=== PATIENT | female | born 1940 | race Caucasian/White ===

== ENCOUNTER → 2017-07-19 10:07 | Outpatient (CLI) | payer MEDICARE, OTHER, SELFPAY ==
[2017-07-19 11:25] LABS: Basophils # 0.1 K/mm3 (0-0.2); Basophils % 0.6 % (0.1-2.0); Eosinophils # 0.2 K/mm3 (0.0-0.4); Eosinophils % 2.2 % (0.1-12.0); Hematocrit 37.8 % (37.0-47.0); Hemoglobin 12.2 g/dL (12.2-16.2); Lymphocytes # 1.4 K/mm3 (0.7-4.5); Lymphocytes % 15.9 K/mm3 (10-50); Mean Corpuscular HGB Conc 32.3 g/dL (31.8-35.4); Mean Corpuscular Volume 95.9 fl (81-99); Mean Platelet Volume 9.5 fl (7.4-10.4); Monocytes # 0.6 K/mm3 (0.1-1.0); Neutrophils # 6.4 K/mm3 (1.8-7.8); Neutrophils % 74.4 % (37.0-80.0); Platelet Count 293 K/mm3 (142-424); Red Blood Count 3.94 M/mm3 (4.20-5.40); Red Cell Distribution Width 13.7 % (11.5-17.5); White Blood Count 8.6 K/mm3 (4.8-10.8)
[2017-07-19 15:23] LABS: Appearance,Urine SL CLOUDY (Clear); Bilirubin,Urine Negative (Negative); Blood, Urine Negative (Negative); Color,Urine YELLOW (Yellow); Glucose,Urine (UA) Negative (Negative); Ketones,Urine TRACE (Negative); Leukocyte Esterase,Urine TRACE (Negative); Nitrate,Urine Negative (Negative); Protein,Urine 1+ (Negative); Specific Gravity, Urine >= 1.030 (1.005-1.030); Urobilinogen,Urine 0.2 EU/dl (0.2)
[2017-07-19 15:57] LABS: Total Protein,Urine Random 55.6 mg/dL (0.0-11.9)
[2017-07-19 16:20] LABS: Bacteria,Urine 4+ /lpf; Squamous Epithelial Cell,Urine 20-50 #/hpf (0-5); Transitional Epi Cells,Urine OCC #/lpf (0-3); WBC,Urine 20-50 #/hpf (0-3)
[2017-07-19 16:55] LABS: Creatinine,Urine Random 508 mg/dL (20-320)
[2017-07-19 22:34] LABS: Albumin Level 3.6 gm/dL (3.4-5.0); Anion Gap 15.6 mEq/L (5-15); Blood Urea Nitrogen 32 mg/dL (7-18); Calcium 9.1 mg/dL (8.5-10.1); Carbon Dioxide 26 mmol/L (21.0-32.0); Chloride 104 mmol/L (98-107); Creatinine,Serum 2.04 mg/dL (0.55-1.02); Estimated Glomerular Filt Rate 24 ml/min (>60); GFR (African American) 29 ML/MIN (>60); Glucose 122 mg/dL (74-106); Phosphorous 3.2 mg/dL (2.4-4.9); Potassium 4.6 mmoL/L (3.5-5.1); Sodium 141 mmol/L (136-145)
[2017-07-20 18:29] LABS: Parathyroid Hormone Intact 48 pg/mL (15-65); Vitamin D 25 Hydroxy 20.7 ng/mL (30.0-100.0)
== END ==
PROVIDERS: PCP Family Medicine; Visit Provider Internal Medicine Nephrology
DX: N18.4 Chronic kidney disease, stage 4 (severe) (principal); R82.90 Unspecified abnormal findings in urine
CPT/HCPCS: 36415; 80069; 81001; 82330; 82570; 82652; 83970; 84155; 85025; 87086

== ENCOUNTER → 2017-07-26 14:08 | Outpatient (POV) | payer MEDICARE, OTHER, SELFPAY | PROVIDERS: PCP Family Medicine; Visit Provider Internal Medicine Nephrology | DX: Z00.00 Encounter for general adult medical examination without abnormal findings (principal) ==

== ENCOUNTER → 2017-11-14 12:36 | Outpatient (CLI) | payer MEDICARE, OTHER, SELFPAY ==
--- NOTE | 2017-11-14 12:45 | XR_ITS ---
XR chest 2V HISTORY: ITS.REASON: WGT LOSS ORDERING PHYSICIAN: Carolyn Michel MD PATIENT AGE: 77 years COMPARISON: 01/04/2015 FINDINGS: There is cardiomegaly without failure. Calcified granulomas are present bilaterally. No lobar consolidation or collapse. There is a small left pleural effusion. There is mild kyphosis of the thoracic spine IMPRESSION: Cardiomegaly with small left effusion
== END ==
PROVIDERS: PCP Family Medicine; Visit Provider Family Medicine
DX: R63.4 Abnormal weight loss (principal)
CPT/HCPCS: 71046

== ENCOUNTER → 2017-11-23 09:05 | Outpatient (CLI) | payer MEDICARE, OTHER, SELFPAY ==
--- NOTE | 2017-11-23 09:08 | US_ITS ---
US kidney retroperitoneal comp HISTORY: ITS.REASON: RENAL INSUFFICIENCY ORDERING PHYSICIAN: Carolyn Michel MD PATIENT AGE: 77 years Comparison: None FINDINGS: The right kidney measures 9.5 x 3.3 x 5.2 cm. There is cortical thinning. A 2.9 cm cyst is present in the mid polar region. No hydronephrosis. The left kidney is 8.9 x 4 x 5.5 cm also showing cortical thinning. No mass evident. No hydronephrosis IMPRESSION: Bilateral renal cortical thinning small right renal cyst. No hydronephrosis
== END ==
PROVIDERS: PCP Family Medicine; Visit Provider Family Medicine
DX: N28.9 Disorder of kidney and ureter, unspecified (principal)
CPT/HCPCS: 76770

== ENCOUNTER → 2017-12-24 08:46 | Outpatient (CLI) | payer MEDICARE, OTHER, SELFPAY ==
[2017-12-24 08:50] LABS: Microscopic, Urine URINE MICROSCOPIC (MICROSCOPIC)
[2017-12-24 09:40] LABS: Basophils % 0.5 % (0.1-2.0); Eosinophils # 0.2 K/mm3 (0.0-0.4); Eosinophils % 2.4 % (0.1-12.0); Hematocrit 39.9 % (37.0-47.0); Hemoglobin 12.3 g/dL (12.2-16.2); Lymphocytes # 1.6 K/mm3 (0.7-4.5); Lymphocytes % 16.9 K/mm3 (10-50); Mean Corpuscular HGB Conc 30.9 g/dL (31.8-35.4); Mean Corpuscular Hemoglobin 29.8 pg (27.0-31.2); Mean Corpuscular Volume 96.3 fl (81-99); Monocytes # 0.5 K/mm3 (0.1-1.0); Monocytes % 5.4 % (1.7-9.3); Neutrophils # 7.1 K/mm3 (1.8-7.8); Neutrophils % 74.8 % (37.0-80.0); Platelet Count 351 K/mm3 (142-424); Red Blood Count 4.14 M/mm3 (4.20-5.40); Red Cell Distribution Width 13.6 % (11.5-17.5); White Blood Count 9.5 K/mm3 (4.8-10.8)
[2017-12-24 09:46] LABS: Appearance,Urine SL CLOUDY (Clear); Blood, Urine Negative (Negative); Color,Urine YELLOW (Yellow); Glucose,Urine (UA) Negative (Negative); Ketones,Urine TRACE (Negative); Leukocyte Esterase,Urine 1+ (Negative); Nitrate,Urine POSITIVE (Negative); Protein,Urine 1+ (Negative); Specific Gravity, Urine >= 1.030 (1.005-1.030)
[2017-12-24 09:48] LABS: Total Protein,Urine Random 58.5 mg/dL (0.0-11.9)
[2017-12-24 09:54] LABS: Bilirubin,Urine Negative (Negative)
[2017-12-24 09:55] LABS: Creatinine,Urine Random 509 mg/dL (20-320)
[2017-12-24 09:58] LABS: Bacteria,Urine 2+ /lpf
[2017-12-24 10:24] LABS: Albumin Level 3.6 gm/dL (3.4-5.0); Anion Gap 14.9 mEq/L (5-15); Blood Urea Nitrogen 30 mg/dL (7-18); Calcium 9.4 mg/dL (8.5-10.1); Carbon Dioxide 25 mmol/L (21.0-32.0); Chloride 105 mmol/L (98-107); Creatinine,Serum 1.92 mg/dL (0.55-1.02); Estimated Glomerular Filt Rate 25 ml/min (>60); GFR (African American) 31 ML/MIN (>60); Glucose 111 mg/dL (74-106); Phosphorous 3.7 mg/dL (2.4-4.9); Potassium 4.9 mmoL/L (3.5-5.1); Sodium 140 mmol/L (136-145); Uric Acid 7.6 mg/dL (2.6-7.2)
== END ==
PROVIDERS: Visit Provider Internal Medicine Nephrology
DX: N18.4 Chronic kidney disease, stage 4 (severe) (principal); R82.90 Unspecified abnormal findings in urine
CPT/HCPCS: 36415; 80069; 81001; 82043; 82570; 82652; 84155; 84550; 85025; 87086

== ENCOUNTER → 2017-12-27 14:22 | Outpatient (POV) | payer MEDICARE, OTHER, SELFPAY | PROVIDERS: PCP Family Medicine; Visit Provider Internal Medicine Nephrology | DX: Z00.00 Encounter for general adult medical examination without abnormal findings (principal) ==

== ENCOUNTER → 2018-06-20 09:58 | Outpatient (CLI) | payer MEDICARE, OTHER, SELFPAY ==
[2018-06-20 10:22] LABS: Basophils # 0.1 K/mm3 (0-0.2); Basophils % 0.6 % (0.1-2.0); Eosinophils # 0.2 K/mm3 (0.0-0.4); Hematocrit 34.1 % (37.0-47.0); Hemoglobin 10.9 g/dL (12.2-16.2); Lymphocytes # 1.3 K/mm3 (0.7-4.5); Lymphocytes % 15.8 % (10-50); Mean Corpuscular HGB Conc 32.1 g/dL (31.8-35.4); Mean Corpuscular Hemoglobin 31.9 pg (27.0-31.2); Mean Corpuscular Volume 99.6 fl (81-99); Mean Platelet Volume 7.8 fl (7.4-10.4); Monocytes # 0.5 K/mm3 (0.1-1.0); Neutrophils # 6.3 K/mm3 (1.8-7.8); Neutrophils % 75.6 % (37.0-80.0); Platelet Count 317 K/mm3 (142-424); Red Blood Count 3.43 M/mm3 (4.20-5.40); White Blood Count 8.4 K/mm3 (4.8-10.8)
[2018-06-20 11:41] LABS: Albumin Level 3.2 gm/dL (3.4-5.0); Anion Gap 14.4 mEq/L (5-15); Blood Urea Nitrogen 30 mg/dL (7-18); Calcium 8.8 mg/dL (8.5-10.1); Carbon Dioxide 27 mmol/L (21.0-32.0); Chloride 107 mmol/L (98-107); Creatinine,Serum 2.05 mg/dL (0.55-1.02); Estimated Glomerular Filt Rate 23 ml/min (>60); GFR (African American) 28 ML/MIN (>60); Glucose 94 mg/dL (74-106); Phosphorous 3.6 mg/dL (2.4-4.9); Potassium 4.4 mmoL/L (3.5-5.1); Sodium 144 mmol/L (136-145); Uric Acid 5.9 mg/dL (2.6-7.2)
[2018-06-20 12:42] LABS: Microscopic, Urine URINE MICROSCOPIC (MICROSCOPIC)
[2018-06-20 13:00] LABS: Appearance,Urine SL CLOUDY (Clear); Bilirubin,Urine Negative (Negative); Blood, Urine Negative (Negative); Color,Urine DK YELLOW (Yellow); Glucose,Urine (UA) Negative (Negative); Ketones,Urine TRACE (Negative); Leukocyte Esterase,Urine TRACE (Negative); Nitrate,Urine Negative (Negative); Protein,Urine TRACE (Negative); Specific Gravity, Urine >= 1.030 (1.005-1.030); Urobilinogen,Urine 0.2 EU/dl (0.2)
[2018-06-20 13:08] LABS: Bacteria,Urine 2+ /lpf; Mucus,Urine 1+ /lpf
[2018-06-20 13:51] LABS: Creatinine,Urine Random 262 mg/dL (20-320); Total Protein,Urine Random 40.6 mg/dL (0.0-11.9)
[2018-06-22 10:56] LABS: Calcium, Ionized 5.3 mg/dL (4.5-5.6); Parathyroid Hormone Intact 53 pg/mL (15-65); Vitamin D 25 Hydroxy 21.7 ng/mL (30.0-100.0)
== END ==
PROVIDERS: Visit Provider Internal Medicine Nephrology
DX: N18.4 Chronic kidney disease, stage 4 (severe) (principal); R82.90 Unspecified abnormal findings in urine
CPT/HCPCS: 36415; 80069; 81001; 82330; 82570; 82652; 83970; 84155; 84550; 85025; 87086

== ENCOUNTER → 2018-06-27 12:43 | Outpatient (POV) | payer MEDICARE, OTHER, SELFPAY | PROVIDERS: Visit Provider Internal Medicine Nephrology | DX: Z00.00 Encounter for general adult medical examination without abnormal findings (principal) ==

== ENCOUNTER → 2019-01-15 09:31 | Outpatient (CLI) | payer MEDICARE, OTHER, SELFPAY ==
[2019-01-15 10:35] LABS: Basophils # 0.1 K/mm3 (0-0.2); Basophils % 0.6 % (0.1-2.0); Eosinophils # 0.2 K/mm3 (0.0-0.4); Eosinophils % 2.3 % (0.1-12.0); Hemoglobin 9.2 g/dL (12.2-16.2); Lymphocytes # 1.7 K/mm3 (0.7-4.5); Lymphocytes % 19.8 % (10-50); Mean Corpuscular HGB Conc 29.7 g/dL (31.8-35.4); Mean Corpuscular Hemoglobin 28.6 pg (27.0-31.2); Mean Corpuscular Volume 96.2 fl (81-99); Mean Platelet Volume 7.7 fl (7.4-10.4); Monocytes # 0.6 K/mm3 (0.1-1.0); Monocytes % 6.5 % (1.7-9.3); Neutrophils # 6.2 K/mm3 (1.8-7.8); Neutrophils % 70.8 % (37.0-80.0); Platelet Count 345 K/mm3 (142-424); Red Blood Count 3.22 M/mm3 (4.20-5.40); Red Cell Distribution Width 14.6 % (11.5-17.5); White Blood Count 8.8 K/mm3 (4.8-10.8)
[2019-01-15 11:53] LABS: Albumin Level 3.3 gm/dL (3.4-5.0); Anion Gap 12.7 mEq/L (5-15); Blood Urea Nitrogen 31 mg/dL (7-18); Calcium 9.3 mg/dL (8.5-10.1); Carbon Dioxide 28 mmol/L (21.0-32.0); Chloride 103 mmol/L (98-107); Creatinine,Serum 1.98 mg/dL (0.55-1.02); Estimated Glomerular Filt Rate 24 ml/min (>60); GFR (African American) 30 ML/MIN (>60); Glucose 87 mg/dL (74-106); Phosphorous 3.7 mg/dL (2.4-4.9); Potassium 4.7 mmoL/L (3.5-5.1); Sodium 139 mmol/L (136-145)
[2019-01-15 13:07] LABS: Microscopic, Urine URINE MICROSCOPIC (MICROSCOPIC)
[2019-01-15 13:13] LABS: Appearance,Urine SL CLOUDY (Clear); Bilirubin,Urine Negative (Negative); Blood, Urine Negative (Negative); Color,Urine YELLOW (Yellow); Glucose,Urine (UA) Negative (Negative); Ketones,Urine Negative (Negative); Leukocyte Esterase,Urine 1+ (Negative); Nitrate,Urine Negative (Negative); Protein,Urine 1+ (Negative); Specific Gravity, Urine 1.025 (1.005-1.030); Urobilinogen,Urine 0.2 EU/dl (0.2)
[2019-01-15 14:26] LABS: Bacteria,Urine Trace /lpf
[2019-01-15 15:15] LABS: Creatinine,Urine Random 213 mg/dL (20-320); Total Protein,Urine Random 65.8 mg/dL (0.0-11.9)
== END ==
PROVIDERS: Visit Provider Internal Medicine Nephrology
DX: N18.4 Chronic kidney disease, stage 4 (severe) (principal); R82.90 Unspecified abnormal findings in urine
CPT/HCPCS: 36415; 80069; 81001; 82570; 84155; 85025; 87086

== ENCOUNTER → 2019-01-23 12:18 | Outpatient (POV) | payer MEDICARE, OTHER, SELFPAY | PROVIDERS: Visit Provider Internal Medicine Nephrology | DX: Z00.00 Encounter for general adult medical examination without abnormal findings (principal) ==

== ENCOUNTER → 2019-03-03 13:05 | Outpatient (CLI) | payer MEDICARE, OTHER, SELFPAY ==
--- NOTE | 2019-03-03 13:10 | XR_ITS ---
PROCEDURE: XR SHOULDER RT MIN 2V CLINICAL INDICATION: RT SHOULDER ARTHROPATHY Pain COMPARISON: CXR1 CHEST-PORTABLE from 05/13/2014 CXR1 CHEST-PORTABLE from 01/04/2015 CXR2V XR chest 2V from 11/14/2017 FINDINGS: There are moderate osteoarthritic changes of the right shoulder joint with bony hypertrophic change at the humeral neck. No fracture or dislocation IMPRESSION: Osteoarthritis of the glenohumeral joint. Prominent bony hypertrophic changes are present at the humeral neck. This could be related to an old fracture with bony hypertrophy. Would recommend a follow-up to confirm stability as an exophytic bone lesion/neoplastic process is considered in the differential diagnosis Dictated by: Sukhwinder Martinez MD 03/03/2019 14:24 Electronically signed by Sukhwinder Martinez MD in [place] 03/03/2019 14:24
== END ==
PROVIDERS: PCP Family Medicine; Visit Provider Family Medicine
DX: M19.011 Primary osteoarthritis, right shoulder (principal)
CPT/HCPCS: 73030

== ENCOUNTER → 2019-06-16 08:53 | Outpatient (CLI) | payer MEDICARE, OTHER, SELFPAY ==
--- NOTE | 2019-06-16 09:06 | XR_ITS ---
PROCEDURE: XR SHOULDER RT MIN 2V CLINICAL INDICATION: shoulder pain COMPARISON: XR SHOULDER RT MIN 2V from 03/03/2019 FINDINGS: There is stable severe loss of joint space at the right glenohumeral joint with subchondral cyst formation and sclerosis and a large subcapital spur. Bone density is normal. There is no acute fracture. Soft tissues are unremarkable. The AC joint IMPRESSION: Severe glenohumeral joint osteoarthritis. No other change. Dictated by: Moris Shaikh 06/16/2019 18:10 Electronically signed by Moris Shaikh in [place] 06/16/2019 18:10
== END ==
PROVIDERS: PCP Family Medicine; Visit Provider Orthopaedic Surgery
DX: M25.511 Pain in right shoulder (principal)
CPT/HCPCS: 73030

== ENCOUNTER 2019-06-26 01:42 | Inpatient (IN) | payer MEDICARE, OTHER, SELFPAY ==
[2019-06-26] VITALS (18 sets, daily range): BP systolic 155–197; BP diastolic 74–115; PULSE 78–122; RESP 17–22; TEMP 36.4–37.4; O2SAT 24–99; BMI 36.1; BMI 34.0
--- NOTE | 2019-06-26 01:41 | ECG_ITS ---
APPROVED REPORT Exam: Resting ECG HR:60 bpm ECG Measurements Heart Rate 60 AXES OK P 39 QRSd 86 QRS 11 QT 410 T 124 QTc 410 <Conclusion> Atrial flutter with 4:[address] & T wave abnormality, consider lateral ischemia Abnormal ECG Electronically signed by : Oj Mccarthy, 06/27/2019 08:09:10
--- NOTE | 2019-06-26 01:47 | HMH.EDGENADL ---
ED Disposition Clinical Impression: Atrial flutter Community acquired pneumonia Qualifiers: Laterality: right Lung location: upper lobe of lung Qualified Code(s): J18.9 - Pneumonia, unspecified organism Disposition: Admitted as Observation Condition on Discharge: Fair Referrals: Provider,Referral, [Primary Care Provider] - - Critical Care Critical Care Time: No Attestation: On 06/26/19, the high probability of a clinically significant, sudden or life threatening deterioration of the following system(s) required my full and direct attention, intervention and personal management. The time I documented below is in addition to time spent performing reported procedures but includes the following listed in this critical care notation. Medical Decision Making - Akash Inquiry Pt receiving controlled substance: No Vital Signs: 06/26/19 01:44 Temperature 99.2 F Temperature Source Oral Pulse Rate [Right Brachial] 78 Respiratory Rate 22 Blood Pressure [Right Arm] 197/101 H Blood Pressure Mean [Right Arm] 133 Blood Pressure Source [Right Arm] Automatic Cuff Blood Pressure Position [Right Arm] Supine 02 Sat by Pulse Oximetry 93 L Oxygen Delivery Method Room Air - Lab Data Lab Results 06/26/19 01:58: WBC 10.4, RBC 3.82 L, Hgb 11.2 L, Hct 35.1 L, MCV 91.9, MCH 29.4, MCHC 32.0, RDW 16.3, Plt Count 306, MPV 7.9, Neut % (Auto) 78.6, Lymph % (Auto) 14.5, [place] % (Auto) 5.2, Eos % (Auto) 1.6, Baso % (Auto) 0.2, Neut # (Auto) 8.1 H, Lymph # (Auto) 1.5, [place] # (Auto) 0.5, Eos # (Auto) 0.2, Baso # (Auto) 0.0 06/26/19 01:58: Sodium 138, Potassium 4.7, Chloride 102, Carbon Dioxide 25, Anion Gap 15.7 H, BUN 36 H, Creatinine 1.90 H, Estimated Creat Clear 43, Estimated GFR 26 L, Est GFR ( Amer) 31 L, Glucose 112 H, Calcium 8.7, Troponin I 0.04, Digoxin 1.67 06/26/19 01:58: Lactate 0.8 06/26/19 02:05: Urine Color Yellow, Urine Appearance Clear, Urine pH 6.0, Ur Specific [place] >= 1.030, Urine Protein 2+, Urine Glucose (UA) Negative, Urine Ketones Negative, Urine Blood Negative, Urine Nitrate Negative, Urine Bilirubin Negative, Urine Urobilinogen 0.2, Ur Leukocyte Esterase Trace, Urine RBC 3-5, Urine WBC 3-5, Ur Squamous Epith Cells Occasional, Urine Bacteria 1+ 06/26/19 02:09: POC Glucose 110 06/26/19 02:40: Influenza Type A Ag Negative, Influenza Type B Ag Negative Result diagrams: 06/26/19 01:58 06/26/19 01:58 Orders (Tests/Meds): ED MEDICATIONS Generic Name Dose Route Start Last Admin Trade Name Freq PRN Reason Stop Dose Admin Ceftriaxone Sodium 1 gm/ 50 mls @ 100 mls/hr 06/26/19 02:45 06/26/19 03:03 Sodium Chloride IV 07/10/19 02:44 100 mls/hr Q24H DANIEL Administration Protocol Azithromycin 500 mg/ Sodium 250 mls @ 250 mls/hr 06/26/19 02:45 06/26/19 03:09 Chloride IV 07/10/19 02:44 250 mls/hr Q24H DANIEL Administration Protocol Discontinued Medications Generic Name Dose Route Start Last Admin Trade Name Freq PRN Reason Stop Dose Admin Albuterol/Ipratropium 3 ml 06/26/19 02:43 Duoneb 3ml Neb IH 06/26/19 02:44 ONCE ONE ORDERS Category Date Time Status XR chest portable Stat Exams 06/26/19 01:52 Taken Troponin I Q3H Lab 06/26/19 05:00 Ordered Troponin I Q3H Lab 06/26/19 08:00 Ordered Blood Culture Stat Micro 06/26/19 01:58 Received - ECG Data Tracing #1 EKG interpreted by Amrit Garcia MD: Rhythm: Atrial flutter with controlled ventricular response Rate: 60 [place]: normal Ectopy: none Conduction: normal ST Segment Changes: none T Wave Changes: none Q Waves: none No evidence of acute ischemia or injury - Physician Consults Physician Consulted: Aldo Michel Time: 03:15 Reason -: Admission Comment/Response: Agrees to admit the patient to the hospital. We discussed the patient's clinical information, including history, exam, laboratory and radiology results and ED course. Per hospital procedure, I will write temporary brid
--- NOTE | 2019-06-26 01:52 | XR_ITS ---
PROCEDURE: XR CHEST PORTABLE CLINICAL HISTORY: soa The shortness of air, prior smoker COMPARISON: No exams were available for comparison FINDINGS: Mild cardiomegaly without failure. Patchy density is present in the right upper lobe suggesting an area of infiltrate. There is also increased density in the left lower lung which may be due to an area infiltrate versus overlying soft tissue attenuation. Upright PA and lateral chest may be of further value. There are degenerative changes of the shoulders. IMPRESSION: Cardiomegaly with suspected right upper lobe infiltrate and possible left lower lobe infiltrate. Suggest upright PA and lateral chest for further evaluation if patient can tolerate. Dictated by: Sukhwinder Martinez MD 06/26/2019 06:48 Electronically signed by Sukhwinder Martinez MD in [place] 06/26/2019 06:48
[2019-06-26 02:09] LABS: Basophils % 0.2 % (0.1-2.0); Eosinophils # 0.2 K/mm3 (0.0-0.4); Eosinophils % 1.6 % (0.1-12.0); Hematocrit 35.1 % (37.0-47.0); Hemoglobin 11.2 g/dL (12.2-16.2); Lymphocytes # 1.5 K/mm3 (0.7-4.5); Lymphocytes % 14.5 % (10-50); Mean Corpuscular Hemoglobin 29.4 pg (27.0-31.2); Mean Corpuscular Volume 91.9 fl (81-99); Mean Platelet Volume 7.9 fl (7.4-10.4); Monocytes # 0.5 K/mm3 (0.1-1.0); Monocytes % 5.2 % (1.7-9.3); Neutrophils # 8.1 K/mm3 (1.8-7.8); Neutrophils % 78.6 % (37.0-80.0); Platelet Count 306 K/mm3 (142-424); Red Blood Count 3.82 M/mm3 (4.20-5.40); Red Cell Distribution Width 16.3 % (11.5-17.5); White Blood Count 10.4 K/mm3 (4.8-10.8)
--- NOTE | 2019-06-26 02:09 | PC.NURSE ---
urine sent to lab via cath specimen. blood and cultures, lactic sent to lab. ekg obtained and fsbs obtained due to dm history. pt's family is at bedside. pt was turned and repositioned and clean linens placed underneath her. 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
[2019-06-26 02:16] LABS: POC Glucose,Bedside 110 (70-110)
[2019-06-26 02:22] LABS: Lactic Acid 0.8 mmol/L (0.4-2.0)
[2019-06-26 02:25] LABS: Troponin I 0.04 ng/ml (0.00-0.06)
[2019-06-26 02:26] LABS: Microscopic, Urine URINE MICROSCOPIC (MICROSCOPIC)
[2019-06-26 02:27] LABS: Anion Gap 15.7 mEq/L (5-15); Blood Urea Nitrogen 36 mg/dL (7-18); Calcium 8.7 mg/dL (8.5-10.1); Carbon Dioxide 25 mmol/L (21.0-32.0); Chloride 102 mmol/L (98-107); Creatinine Clearance Estimated 43 mL/min (50-200); Digoxin 1.67 ng/mL (0.90-2.00); Estimated Glomerular Filt Rate 26 ml/min (>60); GFR (African American) 31 ML/MIN (>60); Glucose 112 mg/dL (74-106); Potassium 4.7 mmoL/L (3.5-5.1); Sodium 138 mmol/L (136-145)
[2019-06-26 02:30] LABS: Appearance,Urine CLEAR (Clear); Bilirubin,Urine Negative (Negative); Blood, Urine Negative (Negative); Color,Urine YELLOW (Yellow); Glucose,Urine (UA) Negative (Negative); Ketones,Urine Negative (Negative); Leukocyte Esterase,Urine TRACE (Negative); Nitrate,Urine Negative (Negative); Protein,Urine 2+ (Negative); Specific Gravity, Urine >= 1.030 (1.005-1.030); Urobilinogen,Urine 0.2 EU/dl (0.2)
[2019-06-26 02:36] LABS: Bacteria,Urine 1+ /lpf; Squamous Epithelial Cell,Urine Occasional #/hpf (0-5)
--- NOTE | 2019-06-26 03:12 | PC.NURSE ---
call back received from dr norfleet. stacy on phone at this time. decision to admit made.
--- NOTE | 2019-06-26 03:15 | PC.NURSE ---
called and spoke with nagi barragan for bed assignment. going to room [id number] for francine. called in to robbie in [place].
--- NOTE | 2019-06-26 05:12 | PC.NURSE ---
NURSE AWARE OF ELEVATED BP.
[2019-06-26 06:18] LABS: POC Glucose,Bedside 99 (70-110)
--- NOTE | 2019-06-26 06:30 | PC.NURSE ---
PT NEW OBS ADMISSION FROM ER. PT ALERT AND ORIENTED. ANSWERS ALL QUESTIONS APPROPRIATELY. PT HAS VERY LIMITED USE OF RT ARM/SHOULDER FROM ARTHRITIS AND STATED PT RT HAND SHAKES A LOT. PT MAY AT TIMES REQUIRE ASSISTANCE WITH FEEDING, STATES SHE HAS TROUBLE WITH UTENSILS, BUT DOES OK WITH FINGER FOODS. RESPIRATIONS EVEN AND UNLABORED ON 2L/NC. BREATH SOUNDS SCATTERED EXPIRATORY WHEEZES. NEW IV PT DISLODGED PREVIOUS ONE. NOW HAS #20 LAC INFUSING NS@50 ML/HR. CONTINUES ON IV ABX. PT ALSO RECEIVING SCHEDULED NEB TX. PT STABLE. WILL CONTINUE TO MONITOR. REPORT TO BE GIVEN TO ONCOMING NURSE.
--- NOTE | 2019-06-26 07:32 | HMH.PHAVTE ---
[facility] Pharmacy VTE Monitoring - Patient Demographics Admission date: 06/26/19 Report Date: 06/26/19 Time: 07:32 Allergies/Adverse Reactions: Patient Allergies No Known Allergies Allergy (Verified 06/16/19 09:52) Height: 1.57 m Weight: 84.538 kg Patient Problems: Current Active Problems Community acquired pneumonia (Acute) Atrial flutter (Acute) - VTE Risk Labs: VTE Related Lab Results Hgb 11.2 g/dL (12.2-16.2) L 06/26/19 01:58 Hct 35.1 % (37.0-47.0) L 06/26/19 01:58 Plt Count 306 K/mm3 (142-424) 06/26/19 01:58 BUN 36 mg/dL (7-18) H 06/26/19 01:58 Creatinine 1.90 mg/dL (0.55-1.02) H 06/26/19 01:58 Estimated Creat Clear 43 mL/min (50-200) 06/26/19 01:58 VTE Score: 5 VTE Risk Level: Low Risk - Prophylaxis VTE Prophylaxis Ordered?: Yes Types of VTE Prophylaxis: TEDS Knee High, Pharmacological Location of Applied Device: Bilateral Lower Extremeties Pharmacologic Type: Other (ELIQUIS) - VTE Diagnosis Confirmed Treatment or plan recommended: Continue Current Treatment
--- NOTE | 2019-06-26 08:23 | HMH.HP ---
*Admission Date: 06/26/19 *Chief complaint: shortness of breath, cough *History of present illness: Ms. Dixon is a 79-year-old female with a history of hypertension, hyperlipidemia, morbid obesity, atrial fibrillation, and known diastolic dysfunction. She states she has felt poorly for the past week with a cough and some shortness of breath. This progressively worsened and she was brought to the emergency room by ambulance for evaluation. She was found to have a pneumonia and was admitted and started on IV antibiotics. [facility] History I have reviewed the patient's past medical history: Yes Medical History: Reports:: Atrial Fibrillation (flutter), Diabetes Mellitus Type 2, Hyperlipidemia, Hypertension, Renal Insufficiency *Have you ever received a pneumonia vaccine?: No *Have you received a flu vaccine this season?: No Other Medical History: Reports: Arthritis Laterality Cases: Left: Total Knee Replacement, Right: Carotid Endarterectomy, Bilateral: Cataract Other Surgeries: Yes: - *Social History Educational Level: Completed High School Smoking Status: Former smoker Tobacco Type: cigarettes # Packs/Day (cigarettes): 2 Alcohol Intake: never *Occupational Status:: retired Housing: house Household Members: spouse *Travel in the last 8 weeks: None Family Hx:: Other (CHF, Renal Failure) Review of Systems - Constitutional Reports weakness, Denies body ache(s), Denies fever(s) - Eyes Denies blurry vision, Denies double vision - ENT Reports nasal congestion, Denies sore throat - *Cardiovascular Reports shortness of breath, Denies chest pain - *Respiratory Reports cough, Reports shortness of breath, Reports wheezing - *Gastrointestinal Denies abdominal pain, Denies loose stools, Denies nausea, Denies vomiting - *Genitourinary Denies difficulty urinating, Denies painful urination - *Musculoskeletal Denies joint pain - *Neurologic Reports dizziness, Reports weakness, Denies headache(s) Meds Home Medications Medication Instructions Recorded Confirmed Type allopurinol 100 mg tablet 100 mg PO DAILY 06/16/19 06/26/19 History apixaban 5 mg tablet 5 mg PO BID 06/16/19 06/26/19 History ascorbate calcium (vitamin C) 500 500 mg PO DAILY 06/16/19 06/26/19 History mg tablet aspirin 81 mg tablet,delayed 81 mg PO DAILY 06/16/19 06/26/19 History release carvedilol 12.5 mg tablet 12.5 mg PO BID 06/16/19 06/26/19 History cholecalciferol (vitamin D3) 50,000 unit PO QWEEK 06/16/19 06/26/19 History 50,000 unit oral wafer digoxin 125 mcg (0.125 mg) tablet 125 mcg PO DAILY 06/16/19 06/26/19 History diltiazem HCl 180 mg 180 mg PO DAILY 06/16/19 06/26/19 History capsule,extended release 24 hr fenofibrate nanocrystallized 145 145 mg PO DAILY 06/16/19 06/26/19 History mg tablet losartan 50 mg tablet 50 mg PO DAILY 06/16/19 06/26/19 History sertraline 25 mg tablet 25 mg PO DAILY 06/16/19 06/26/19 History sitagliptin 100 mg tablet 100 mg PO DAILY 06/16/19 06/26/19 History Allergies Allergy/AdvReac Type Severity Reaction Status Date / Time No Known Allergies Allergy Verified 06/16/19 09:52 Exam Vital signs and Labs for Last 24 Hours: Temp Pulse Resp BP Pulse Ox 98.0 F 118 H 19 157/115 H 94 L 06/26/19 08:00 06/26/19 08:00 06/26/19 08:00 06/26/19 08:00 06/26/19 08:00 Laboratory Results - last 24 hr 06/26/19 01:58: WBC 10.4, RBC 3.82 L, Hgb 11.2 L, Hct 35.1 L, MCV 91.9, MCH 29.4, MCHC 32.0, RDW 16.3, Plt Count 306, MPV 7.9, Neut % (Auto) 78.6, Lymph % (Auto) 14.5, [place] % (Auto) 5.2, Eos % (Auto) 1.6, Baso % (Auto) 0.2, Neut # (Auto) 8.1 H, Lymph # (Auto) 1.5, [place] # (Auto) 0.5, Eos # (Auto) 0.2, Baso # (Auto) 0.0 06/26/19 01:58: Sodium 138, Potassium 4.7, Chloride 102, Carbon Dioxide 25, Anion Gap 15.7 H, BUN 36 H, Creatinine 1.90 H, Estimated Creat Clear 43, Estimated GFR 26 L, Est GFR ( Amer) 31 L, Glucose 112 H, Calcium 8.7, Troponin I 0.04, Digoxin 1.67 06/26/19 01:58: Lactate
--- NOTE | 2019-06-26 09:52 | HMH.PHAINT ---
HOME MEDICATIONS RECONCILED FROM RX BOTTLES.
[2019-06-26 11:42] LABS: POC Glucose,Bedside 96 (70-110)
--- NOTE | 2019-06-26 11:45 | CA_ITS ---
APPROVED REPORT EXAM: Comprehensive 2D, Doppler, and color-flow Echocardiogram Plywood Scarfer Tender: Celsa Eagle CRT Ht: 5 ft 1 in Wt: 186lbs BSA: 1.83 BP: 157/115 mmHg Indications: AFIB, A FLUTTER, HTN, DM, SOB, HLD, DD 2D Dimensions LVOT 2.00 cm (M/F) 1.5-2.5 M-Mode Dimensions RVDd 2.64 cm (0.9-2.6) LVDd 5.83 cm (3.5-5.7) LVDs 4.31 cm (3.5-5.7) IVSd 1.55 cm (0.6-1.1) PWd 0.89 cm (0.6-1.1) EF (Teich) 50.40% FS 26.10% EDV (Teich) 168.50 mL ESV (Teich) 83.50 mL LV Diastology E/A Ratio 1.96 Mitral Valve MV A Velocity 80.00 (40-130 cm/s) Left Ventricle Left atrium is a moderately enlarged, left ventricle is normal size, mild concentric left ventricular hypertrophy, visually estimated ejection fraction 55% with no regional wall motion abnormality. Diastolic parameters are inconclusive. Right Ventricle Right atrium is mildly enlarged, right ventricle is mildly enlarged with normal contractility. Aortic Valve Aortic valve is thickened and calcified, leaflet chordae display good mobility, there is no aortic stenosis, there is mild aortic insufficiency. Mitral Valve Mitral valve has mitral calcification, leaflets are minimally thickened. There is no mitral stenosis, there is moderate mitral regurgitation. Tricuspid Valve Tricuspid valve leaflets are minimally thickened, there is no tricuspid stenosis, there is moderate tricuspid regurgitation, calculated right ventricular systolic pressure is 60 mmHg which is moderately elevated. Pulmonic Valve Pulmonic valve is poorly visualized. Great Vessels Aortic root is normal size. Pericardium There is trivial pericardial effusion noted. Conclusion 1. Biatrial enlargement, normal left ventricular size, mild concentric left ventricular hypertrophy, visually estimated ejection fraction 55% with no regional wall motion abnormality, diastolic parameters are inconclusive. 2. Mildly enlarged right ventricle with normal contractility. 3. Thickened and calcified aortic valve without aortic stenosis, there is mild aortic insufficiency. 4. Moderate mitral and tricuspid regurgitation, calculated right ventricular systolic pressure is 60 mmHg. 5. No significant pericardial effusion noted. Electronically signed by : Nahid Berger, 06/27/2019 14:17:47
--- NOTE | 2019-06-26 11:49 | HMH.CNCARD ---
History of Present Illness Consult date: 06/26/19 Requesting physician: Carolyn Michel Chief complaint: A. flutter with RVR Additional Medical History:: 1. Hypertension with remote echo showing left atrial enlargement greater than 4 cm and evidence of mild to moderate concentric left ventricular hypertrophy with preserved ejection fraction. 2. Hyperlipidemia 3. Diabetes mellitus 4. Atrial fibrillation/flutter dating back to at least 2013 5. History of Lexiscan Myoview 2013 with no ischemia and normal ejection fraction 6. Hx of carotid artery disease A. S/P right CEA 2003 at [facility] B. Carotid doppler 05/14/14: 50-69% LICA stenosis, no stenosis in the CASA C. Doppler 01/04/12: < 20% CASA and 20-49% LICA stenosis (no changes from 10/11/10); bilat vertebral arteries patent w/nomral antegrade flow; tortuous cartoid arteries bilaterally. 7. CHRISTOPHER, severe by sleep study in 2005, not on CPAP (reported intolerance) History of present illness: Ms. Dixon is a 79-year-old female with a history of hypertension, hyperlipidemia, morbid obesity, atrial fibrillation, and known diastolic dysfunction. She states she has felt poorly for the past week with a cough and some shortness of breath. This progressively worsened and she was brought to the emergency room by ambulance for evaluation. She was found to have a pneumonia and was admitted and started on IV antibiotics. The above per Jeny Rasmussen PA-C for Dr. Michel Cardiology consulted due to atrial flutter with RVR despite 3 rate control medications including digoxin, Cardizem and Coreg. Patient has a longstanding history of A. fib/flutter with prior note in 2014 recommending referral to electrophysiology for evaluation of ablation therapy. 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 Patient is somewhat of a poor historian. She has been on chronic anticoagulation therapy. Telemetry appears to be atrial flutter with variable rate but most consistently in the 120-130 bpm range. Initial troponin is upper limits of normal in the setting of chronic kidney disease stage IV with GFR of 26 and creatinine of 1.9. Patient denies any chest pain, pressure or tightness but does relate shortness of breath and cough. Chest x-ray reveals pneumonia in the right upper lobe and left lower lobe areas. There is evidence of cardiomegaly without failure. [facility] History Medical History: Reports:: Atrial Fibrillation (flutter), Diabetes Mellitus Type 2, Hyperlipidemia, Hypertension, Renal Insufficiency *Have you ever received a pneumonia vaccine?: No *Have you received a flu vaccine this season?: No Other Medical History: Reports: Arthritis Laterality Cases: Left: Total Knee Replacement, Right: Carotid Endarterectomy, Bilateral: Cataract Other Surgeries: Yes: - *Social History Educational Level: Completed High School Smoking Status: Former smoker Tobacco Type: cigarettes # Packs/Day (cigarettes): 2 Alcohol Intake: never *Occupational Status:: retired Housing: house Household Members: spouse *Travel in the last 8 weeks: None Family Hx:: Other (CHF, Renal Failure) Meds Home Medications Medication Instructions Recorded Confirmed Type allopurinol 100 mg tablet 100 mg PO DAILY 06/16/19 06/26/19 History apixaban 5 mg tablet 5 mg PO BID 06/16/19 06/26/19 History ascorbate calcium (vitamin C) 500 500 mg PO DAILY 06/16/19 06/26/19 History mg tablet aspirin 81 mg tablet,delayed 81 mg PO DAILY 06/16/19 06/26/19 History release carvedilol 12.5 mg tablet 12.5 mg PO BID 06/16/19 06/26/19 History cholecalciferol (vitamin D3) 50,000 unit PO WEEKLY 06/16/19 06/26/19 History 50,000 unit oral wafer digoxin 125 mcg (0.125 mg) tablet 125 mcg PO DAILY 06/16/19 06/26/19 History diltiazem HCl 180 mg 180 mg PO DAILY 06/16/19 06/26/19 History capsule,extended release 24 hr fenofibrate nanocrystallized 145 145 mg PO DAILY 06/16/19 06/26/19 History mg tablet losartan 50 mg tablet 50 mg P
--- NOTE | 2019-06-26 12:41 | ECG_ITS ---
APPROVED REPORT Exam: Resting ECG HR:103 bpm ECG Measurements Heart Rate 103 AXES QRSd 86 QRS -7 QT 280 T 87 QTc 366 <Conclusion> Atrial flutter with variable AV block Nonspecific ST abnormality Abnormal ECG Electronically signed by : Oj Mccarthy, 06/27/2019 08:08:24
[2019-06-26 14:16] LABS: Free Thyroxine Index 3.3 ug/dL (5.93-13.13); T4 (Thyroxine) 9.1 ug/dl (4.7-13.3); Thyroid Stimulating Hormone 1.65 uIU/ml (0.358-3.740); Triiodothryronine (T3) Uptake 36 % (31-39)
[2019-06-26 16:47] LABS: POC Glucose,Bedside 184 (70-110)
[2019-06-27] VITALS (9 sets, daily range): BP systolic 141–160; BP diastolic 61–100; PULSE 63–112; RESP 16–20; TEMP 36.4–37; O2SAT 96–100; BMI 34.6; BMI 34.8
[2019-06-27 00:38] LABS: POC Glucose,Bedside 282 (70-110)
--- NOTE | 2019-06-27 03:45 | PC.NURSE ---
Addendum entered by Aleta Erwin RN 06/27/19 03:52: Blood pressure continues to run high, will alert dayshift nurse or MD upon arrival. Hx of HTN noted and blood pressures have been on the high in pt's hx. Original Note: Pt presently resting with snore noted, respirations rhythmic, 022LNC in place. FS @ 2000 = 282. IV fluids infusing well with no s/s erythema or infiltration identified. Pt alert and oriented for assessments, up with 2 assist to bsc, bm last night. No acute findings, monitoring continues.
--- NOTE | 2019-06-27 08:10 | HMH.ACPN2 ---
Internal Medicine - PN: Subj *Date: 06/27/19 *Time: 08:10 Interval history: Patient states she is feeling a little bit better this morning. She thinks her shortness of breath and cough have improved. She was able to rest last night and ate all of her breakfast this morning. She denies any pain. Exam Vital signs and Labs for Last 24 Hours: Temp Pulse Resp BP Pulse Ox 98.5 F 110 H 16 150/77 H 98 06/27/19 04:00 06/27/19 06:09 06/27/19 04:00 06/27/19 04:00 06/27/19 06:09 Laboratory Results - last 24 hr 06/26/19 01:58: TSH 1.65, Free T4 Index 3.3 L, Thyroxine (T4) 9.1, T3 Uptake 36 06/26/19 11:34: POC Glucose 96 06/26/19 16:38: POC Glucose 184 H 06/26/19 20:55: POC Glucose 282 H I & O for Last 24 hours: Intake & Output 06/24/19 06/25/19 06/26/19 06/27/19 11:59 11:59 11:59 11:59 Intake Total 900 / 900 875 / 875 Output Total 500 / 500 1650 / 1650 Balance 400 / 400 -775 / -775 Weight 186 lb 6 oz 189 lb 3 oz - Constitutional no acute distress - *Routine Respiratory Exam Present: wheezes (bilateral). Absent: rales - *Routine Cardiovascular Exam Present: irregularly irregular - *Routine Abdominal Exam Present: soft, normoactive bowel sounds. Absent: tenderness - *Routine Extremities Exam Absent: cyanosis, clubbing, edema - *Routine Skin Exam Present: warm. Absent: rash - *Routine Neurological Exam Present: alert, oriented X3 Assessment and Plan (1) Community acquired pneumonia Current visit: Yes Status: Acute Qualifiers: Laterality: right Lung location: upper lobe of lung Qualified Code(s): J18.9 - Pneumonia, unspecified organism Category: Medical Code(s): J18.9 - Pneumonia, unspecified organism (2) Atrial flutter Current visit: Yes Status: Acute Category: Medical Code(s): I48.92 - Unspecified atrial flutter (3) Morbid obesity Current visit: Yes Status: Chronic Category: Medical Code(s): E66.01 - Morbid (severe) obesity due to excess calories (4) Hypertension Current visit: Yes Status: Chronic Category: Medical Code(s): I10 - Essential (primary) hypertension (5) Hyperlipidemia Current visit: Yes Status: Chronic Category: Medical Code(s): E78.5 - Hyperlipidemia, unspecified (6) CKD (chronic kidney disease), stage IV Current visit: Yes Status: Acute Category: Medical Code(s): N18.4 - Chronic kidney disease, stage 4 (severe) - Assessment and plan all Dx Assessment and Plan for all problems:: Cardiology did see the patient and felt she needed to continue medical therapy for rate control. They increased her Cardizem to 180 mg twice daily and recommended to continue her digoxin. They felt her bisoprolol could be switched to carvedilol if her heart rate did not respond to the increase in the Cardizem. They also ordered an echo. We will continue IV antibiotics and repeat labs this morning.
[2019-06-27 08:13] LABS: POC Glucose,Bedside 151 (70-110)
--- NOTE | 2019-06-27 08:32 | HMH.PNCARD ---
Subjective Date: 06/27/19 Time: 08:32 Principal diagnosis: A. fib, CHF Interval history: 79 yo WF in bed in NAD eating breakfast. Feeling better. Heart rate still elevated. Exam Vital signs and Labs for Last 24 Hours: Temp Pulse Resp BP Pulse Ox 97.7 F 105 H 18 147/77 H 98 06/27/19 08:00 06/27/19 08:00 06/27/19 08:00 06/27/19 08:00 06/27/19 08:00 Laboratory Results - last 24 hr 06/26/19 01:58: TSH 1.65, Free T4 Index 3.3 L, Thyroxine (T4) 9.1, T3 Uptake 36 06/26/19 11:34: POC Glucose 96 06/26/19 16:38: POC Glucose 184 H 06/26/19 20:55: POC Glucose 282 H 06/27/19 06:13: POC Glucose 151 H I & O for Last 24 hours: Intake & Output 06/24/19 06/25/19 06/26/19 06/27/19 11:59 11:59 11:59 11:59 Intake Total 900 / 900 875 / 875 Output Total 500 / 500 1650 / 1650 Balance 400 / 400 -775 / -775 Weight 186 lb 6 oz 189 lb 3 oz - *Routine HEENT Exam Head: Present: normocephalic Eye: Present: EOMI, PERRL ENT: Present: mucous membranes moist - *Routine Respiratory Exam Present: CTA bilaterally. Absent: accessory muscle use, rales, rhonchi, wheezes - *Routine Cardiovascular Exam Present: tachycardia, irregularly irregular. Absent: murmur, gallop, rubs - *Routine Extremities Exam Absent: edema, calf tenderness - *Routine Neurological Exam Present: alert, oriented X3, moving all extremities Progress Note: A&P (1) Community acquired pneumonia Status: Acute Current Visit: Yes (2) Atrial flutter Status: Acute Current Visit: Yes (3) Morbid obesity Status: Chronic Current Visit: Yes (4) Hypertension Status: Chronic Current Visit: Yes (5) Hyperlipidemia Status: Chronic Current Visit: Yes (6) CKD (chronic kidney disease), stage IV Status: Acute Current Visit: Yes Assessment and Plan for All Diagnoses:: 1. Switch coreg to bisoprolol for better rate control. Consider outpatient referral to EP for possible AV node ablation with pacemaker. 2. Continue other meds
[2019-06-27 08:59] LABS: Basophils % 0.1 % (0.1-2.0); Eosinophils % 0.1 % (0.1-12.0); Hematocrit 32.9 % (37.0-47.0); Hemoglobin 10.4 g/dL (12.2-16.2); Lymphocytes # 0.8 K/mm3 (0.7-4.5); Lymphocytes % 8.9 % (10-50); Mean Corpuscular HGB Conc 31.6 g/dL (31.8-35.4); Mean Corpuscular Hemoglobin 29.2 pg (27.0-31.2); Mean Corpuscular Volume 92.4 fl (81-99); Monocytes # 0.1 K/mm3 (0.1-1.0); Monocytes % 1.1 % (1.7-9.3); Neutrophils # 7.6 K/mm3 (1.8-7.8); Neutrophils % 89.8 % (37.0-80.0); Platelet Count 272 K/mm3 (142-424); Red Blood Count 3.56 M/mm3 (4.20-5.40); White Blood Count 8.5 K/mm3 (4.8-10.8)
--- NOTE | 2019-06-27 09:02 | PC.NURSE ---
Made Dr. Anand MD aware of pts positive blood cx @ 3713.
[2019-06-27 09:06] LABS: Alanine Aminotransferase 9 U/L (12-78); Albumin Level 2.7 gm/dL (3.4-5.0); Albumin/Globulin Ratio 0.8 (1.1-1.8); Alkaline Phosphatase 64 U/L (46-116); Anion Gap 13.2 mEq/L (5-15); Aspartate Amino Transferase 19 U/L (15-37); Bilirubin,Total 0.4 mg/dL (0.2-1.0); Blood Urea Nitrogen 34 mg/dL (7-18); Calcium 8.6 mg/dL (8.5-10.1); Carbon Dioxide 25 mmol/L (21.0-32.0); Chloride 104 mmol/L (98-107); Creatinine Clearance Estimated 41 mL/min (50-200); Creatinine,Serum 1.55 mg/dL (0.55-1.02); Estimated Glomerular Filt Rate 32 ml/min (>60); GFR (African American) 39 ML/MIN (>60); Globulin 3.5 gm/dl (1.3-3.2); Glucose 200 mg/dL (74-106); Potassium 4.2 mmoL/L (3.5-5.1); Sodium 138 mmol/L (136-145); Total Protein,Serum 6.2 gm/dL (6.4-8.2)
[2019-06-27 09:12] LABS: MANUAL DIFFERENTIAL MANUAL DIFFERENTIAL (MANUAL DIFF)
--- NOTE | 2019-06-27 09:33 | HMH.PHACONS ---
- Pharmacy Consult Date: 06/27/19 Time: 09:33 Referring provider: DR. BLAKELY Reason for Consult:: VANCOMYCIN DOSING Allergies and ADEs:: Allergies Allergy/AdvReac Type Severity Reaction Status Date / Time No Known Allergies Allergy Verified 06/16/19 09:52 Home Medications:: Home Medications Medication Instructions Recorded Confirmed Type allopurinol 100 mg tablet 100 mg PO DAILY 06/16/19 06/26/19 History apixaban 5 mg tablet 5 mg PO BID 06/16/19 06/26/19 History ascorbate calcium (vitamin C) 500 500 mg PO DAILY 06/16/19 06/26/19 History mg tablet aspirin 81 mg tablet,delayed 81 mg PO DAILY 06/16/19 06/26/19 History release carvedilol 12.5 mg tablet 12.5 mg PO BID 06/16/19 06/26/19 History cholecalciferol (vitamin D3) 50,000 unit PO WEEKLY 06/16/19 06/26/19 History 50,000 unit oral wafer digoxin 125 mcg (0.125 mg) tablet 125 mcg PO DAILY 06/16/19 06/26/19 History diltiazem HCl 180 mg 180 mg PO DAILY 06/16/19 06/26/19 History capsule,extended release 24 hr fenofibrate nanocrystallized 145 145 mg PO DAILY 06/16/19 06/26/19 History mg tablet losartan 50 mg tablet 50 mg PO DAILY 06/16/19 06/26/19 History sertraline 25 mg tablet 25 mg PO DAILY 06/16/19 06/26/19 History sitagliptin 100 mg tablet 50 mg PO DAILY 06/16/19 06/26/19 History Height: 1.57 m Weight: 85.814 kg Laboratory Results:: Laboratory Results - last 24 hr 06/26/19 01:58: TSH 1.65, Free T4 Index 3.3 L, Thyroxine (T4) 9.1, T3 Uptake 36 06/26/19 11:34: POC Glucose 96 06/26/19 16:38: POC Glucose 184 H 06/26/19 20:55: POC Glucose 282 H 06/27/19 06:13: POC Glucose 151 H 06/27/19 08:40: WBC 8.5, RBC 3.56 L, Hgb 10.4 L, Hct 32.9 L, MCV 92.4, MCH 29.2, MCHC 31.6 L, RDW 16.0, Plt Count 272, MPV 8.0, Neut % (Auto) 89.8 H, Lymph % (Auto) 8.9 L, [place] % (Auto) 1.1 L, Eos % (Auto) 0.1, Baso % (Auto) 0.1, Neut # (Auto) 7.6, Lymph # (Auto) 0.8, [place] # (Auto) 0.1, Eos # (Auto) 0.0, Baso # (Auto) 0.0 06/27/19 08:40: Sodium 138, Potassium 4.2, Chloride 104, Carbon Dioxide 25, Anion Gap 13.2, BUN 34 H, Creatinine 1.55 H, Estimated Creat Clear 41, Estimated GFR 32 L, Est GFR ( Amer) 39 L D, Glucose 200 H, Calcium 8.6, Total Bilirubin 0.4, AST 19, ALT 9 L, Alkaline Phosphatase 64, Total Protein 6.2 L, Albumin 2.7 L, Globulin 3.5 H, Albumin/Globulin Ratio 0.8 L Medical History: Reports:: Atrial Fibrillation (flutter), Diabetes Mellitus Type 2, Hyperlipidemia, Hypertension, Renal Insufficiency Assessment and Plan (1) Community acquired pneumonia Current visit: Yes Status: Acute Qualifiers: Laterality: right Lung location: upper lobe of lung Qualified Code(s): J18.9 - Pneumonia, unspecified organism Category: Medical Code(s): J18.9 - Pneumonia, unspecified organism (2) Atrial flutter Current visit: Yes Status: Acute Category: Medical Code(s): I48.92 - Unspecified atrial flutter (3) Morbid obesity Current visit: Yes Status: Chronic Category: Medical Code(s): E66.01 - Morbid (severe) obesity due to excess calories (4) Hypertension Current visit: Yes Status: Chronic Category: Medical Code(s): I10 - Essential (primary) hypertension (5) Hyperlipidemia Current visit: Yes Status: Chronic Category: Medical Code(s): E78.5 - Hyperlipidemia, unspecified (6) CKD (chronic kidney disease), stage IV Current visit: Yes Status: Acute Category: Medical Code(s): N18.4 - Chronic kidney disease, stage 4 (severe) - Assessment and plan all Dx Assessment and Plan for all problems:: BASED ON PATIENT FACTORS, RECOMMEND INITIATING VANCOMYCIN AT 1,500MG IV EVERY 36 HOURS. PHARMACY WILL MONITOR AND ADJUST DOSE APPROPRIATE. -DILEEP [place]
[2019-06-27 11:35] LABS: POC Glucose,Bedside 183 (70-110)
[2019-06-27 11:42] LABS: Lymphocytes % 5 % (10-50); Neutrophils % 95 % (42-76); Total Cells Counted 100
--- NOTE | 2019-06-27 11:49 | PC.NURSE ---
Pt alert and oriented x 4 at this time. RR even and unlabored. 02 @ 2 L/ NC. Able to make needs known. at bedside this am. BS x 4. Soft and non tender. Hasn't voided thus far today (1150), states she has been drinking. Will cont to mx this.CB in reach and VSS at this time. Sinus tach on tele, Lungs scattered rhonchi Matt lung barreto. Will cont to mx pt this shift. SSI given per mar as ordered.
[2019-06-27 11:51] LABS: Platelet Estimate Normal; RBC Morphology Normal
--- NOTE | 2019-06-27 13:13 | SW/DCPLANNER ---
I have spoke with this patient this afternoon regarding discharge plans. Patient stated that she resides at home with her spouse. Patient uses an electric wheelchair and a walker at home. I have discussed options (if necessary) at time of discharge of placement vs home health. Patients stated that patient is very weak at this time. Patient stated that her goal is to return home. Patient will be in patient over the weekend. I will follow up with this patient and spouse on Sunday.
--- NOTE | 2019-06-27 15:17 | PC.NURSE ---
Pt hasnt voided thus far today. Has had NS @ 50 ml/hr, and po 360 cc intake. Did have pt up to [facility] to see if this would help. Can palpate bladder. Notified Dr. Michel's office @ [phone] spoke with selvin. Awaiting response at this time. Denies urge to void at this time. Will cont to mx patient.
[2019-06-27 18:08] LABS: POC Glucose,Bedside 148 (70-110)
--- NOTE | 2019-06-27 18:26 | PC.NURSE ---
Did insert indwelling cath per Dr. Michel r/t retention. Pt had'nt voided this shift. Pt did void 200 cc, inserted cath and minimal amt of urine was noted post void. Did make MD Dr. Michel aware of these findings.
[2019-06-27 19:00] LABS: Microscopic, Urine URINE MICROSCOPIC (MICROSCOPIC)
--- NOTE | 2019-06-27 19:11 | PC.NURSE ---
report given to austin
[2019-06-27 19:23] LABS: Appearance,Urine CLEAR (Clear); Bilirubin,Urine Negative (Negative); Blood, Urine Negative (Negative); Color,Urine YELLOW (Yellow); Glucose,Urine (UA) Negative (Negative); Ketones,Urine Negative (Negative); Leukocyte Esterase,Urine Negative (Negative); Nitrate,Urine Negative (Negative); Protein,Urine 2+ (Negative); Specific Gravity, Urine >= 1.030 (1.005-1.030); Urobilinogen,Urine 0.2 EU/dl (0.2)
[2019-06-27 19:30] LABS: WBC,Urine Occasional #/hpf (0-3)
[2019-06-27 19:31] LABS: Amorphous Sediment,Urine 1+ /lpf; Squamous Epithelial Cell,Urine Occasional #/hpf (0-5)
--- NOTE | 2019-06-27 19:42 | PC.NURSE ---
Did also give pt incentive spirometer for use as well.
[2019-06-27 21:41] LABS: POC Glucose,Bedside 189 (70-110)
--- NOTE | 2019-06-27 23:46 | PC.NURSE ---
Pt's room air sat at rest = 93%.
[2019-06-28] VITALS (13 sets, daily range): BP systolic 148–175; BP diastolic 50–82; PULSE 60–108; RESP 18–20; TEMP 36.2–36.8; O2SAT 93–96; BMI 35.6
--- NOTE | 2019-06-28 04:12 | PC.NURSE ---
Pt had a good night, awake vs sleeping about the same amount. Voice is stronger and pt with greater conversation tonight. FSBS at 1999 - , bedtime snack given. Blood pressure improved coming down some versus last night. Changed hunt cath bag to volutrol to better monitor hourly output, adequate output thus far of yellow, clear, normal odor urine noted. Pt presently resting with eyes closed in supine position, no objective s/s of pain identified, monitoring continues.
[2019-06-28 05:50] LABS: POC Glucose,Bedside 183 (70-110)
--- NOTE | 2019-06-28 08:35 | HMH.ACPN2 ---
Internal Medicine - PN: Subj *Date: 06/28/19 *Time: 08:35 Interval history: Patient states she does feel little bit better today. She has been weaned off of her oxygen with sats in the 90s on room air. She still has a cough and is wheezing. She states she did not rest well last night but she was able to eat all of her breakfast this morning. Exam Vital signs and Labs for Last 24 Hours: Temp Pulse Resp BP Pulse Ox 98.2 F 66 20 175/68 H 96 06/28/19 07:44 06/28/19 08:19 06/28/19 07:44 06/28/19 07:44 06/28/19 07:44 Laboratory Results - last 24 hr 06/27/19 08:40: WBC 8.5, RBC 3.56 L, Hgb 10.4 L, Hct 32.9 L, MCV 92.4, MCH 29.2, MCHC 31.6 L, RDW 16.0, Plt Count 272, MPV 8.0, Neut % (Auto) 89.8 H, Lymph % (Auto) 8.9 L, [place] % (Auto) 1.1 L, Eos % (Auto) 0.1, Baso % (Auto) 0.1, Neut # (Auto) 7.6, Lymph # (Auto) 0.8, [place] # (Auto) 0.1, Eos # (Auto) 0.0, Baso # (Auto) 0.0, Total Counted 100, Neutrophils % (Manual) 95 H, Lymphocytes % (Manual) 5 L, Platelet Estimate Normal, RBC Morphology Normal 06/27/19 08:40: Sodium 138, Potassium 4.2, Chloride 104, Carbon Dioxide 25, Anion Gap 13.2, BUN 34 H, Creatinine 1.55 H, Estimated Creat Clear 41, Estimated GFR 32 L, Est GFR ( Amer) 39 L D, Glucose 200 H, Calcium 8.6, Total Bilirubin 0.4, AST 19, ALT 9 L, Alkaline Phosphatase 64, Total Protein 6.2 L, Albumin 2.7 L, Globulin 3.5 H, Albumin/Globulin Ratio 0.8 L 06/27/19 10:39: POC Glucose 183 H 06/27/19 16:35: POC Glucose 148 H 06/27/19 16:50: Urine Color Yellow, Urine Appearance Clear, Urine pH 6.0, Ur Specific [place] >= 1.030, Urine Protein 2+, Urine Glucose (UA) Negative, Urine Ketones Negative, Urine Blood Negative, Urine Nitrate Negative, Urine Bilirubin Negative, Urine Urobilinogen 0.2, Ur Leukocyte Esterase Negative, Urine RBC None, Urine WBC Occasional, Ur Squamous Epith Cells Occasional, Amorphous Sediment 1+, Urine Bacteria None, Hyaline Casts 5-10 06/27/19 20:22: POC Glucose 189 H 06/28/19 05:24: POC Glucose 183 H I & O for Last 24 hours: Intake & Output 06/25/19 06/26/19 06/27/19 06/28/19 11:59 11:59 11:59 11:59 Intake Total 900 / 900 995 / 995 1337 / 1337 Output Total 500 / 500 1650 / 1650 525 / 525 Balance 400 / 400 -655 / -655 812 / 812 Weight 186 lb 6 oz 189 lb 3 oz 193 lb 8 oz Microbiology Reports for the Last 24 Hours: Microbiology 06/26/19 01:58 Blood Blood Culture - Preliminary 06/26/19 01:58 Blood Blood Culture - Preliminary NO GROWTH AFTER 48 HOURS Radiology Reports for the Last 24 Hours: Echo 1. Biatrial enlargement, normal left ventricular size, mild concentric left ventricular hypertrophy, visually estimated ejection fraction 55% with no regional wall motion abnormality, diastolic parameters are inconclusive. 2. Mildly enlarged right ventricle with normal contractility. 3. Thickened and calcified aortic valve without aortic stenosis, there is mild aortic insufficiency. 4. Moderate mitral and tricuspid regurgitation, calculated right ventricular systolic pressure is 60 mmHg. 5. No significant pericardial effusion noted. - Constitutional no acute distress - *Routine Respiratory Exam Present: wheezes. Absent: rales - *Routine Cardiovascular Exam Present: irregular rhythm (rate is controlled) - *Routine Abdominal Exam Present: soft, normoactive bowel sounds. Absent: tenderness - *Routine Extremities Exam Absent: cyanosis, clubbing, edema - *Routine Skin Exam Present: warm. Absent: rash - *Routine Neurological Exam Present: alert, oriented X3 Assessment and Plan (1) Community acquired pneumonia Current visit: Yes Status: Acute Qualifiers: Laterality: right Lung location: upper lobe of lung Qualified Code(s): J18.9 - Pneumonia, unspecified organism Category: Medical Code(s): J18.9 - Pneumonia, unspecified organism (2) Atrial flutter Current visit: Yes Status: Acute Category: Medical Code(s): I48.92 -
[2019-06-28 12:22] LABS: POC Glucose,Bedside 175 (70-110)
[2019-06-28 16:11] LABS: POC Glucose,Bedside 222 (70-110)
--- NOTE | 2019-06-28 18:54 | PC.NURSE ---
Pt alert and oriented and able to make needs known. RR even and unlabored. Has tolerated RA well. No complaints. Indwelling cath in place and draining clear yellow urine. CB in reach. VSS. at bedside at this time.
[2019-06-28 21:08] LABS: POC Glucose,Bedside 204 (70-110)
--- NOTE | 2019-06-28 21:41 | PC.NURSE ---
when i originally asked the patient at 1999 if she wanted a bath she stated that she would like one tonight before bed. When i went in there at 2129 to ask the patient if she was ready to receive her bed bath or shower she stated I don't usually take one at night and i don't want to become cold before bed. can we do one in the morning? I agreed to the patient's request and asked her what time in the morning would she like to have one and she stated either at 0700 or 0900, which one do you think? I stated that it was her choice. She then stated that she would like one at 0900.
[2019-06-29] VITALS (14 sets, daily range): BP systolic 91–158; BP diastolic 60–88; PULSE 50–110; RESP 16–22; TEMP 36.3–37; O2SAT 94–99; BMI 36.7
--- NOTE | 2019-06-29 04:23 | PC.NURSE ---
nurse was made aware of respirations
--- NOTE | 2019-06-29 04:55 | PC.NURSE ---
A&O X4. PERRLA. BILATERAL FILM HISTORIAN AND STRENGTHS EQUAL AND STRONG. S1, S2 HEART SOUNDS NOTED UPON AUSCULTATION. HX AFLUTTER NOTED. +2 BILATERAL RADIAL AND PEDAL PULSES NOTED UPON PALPATION. SINUS PANFILO/ AFLUTTER NOTED ON OBSERVER GRAVITY PROSPECTING THIS SHIFT. CAP REFILL < 3 SECONDS. NO EDEMA NOTED THIS SHIFT THUS FAR. BILATERAL EXPIRATORY WHEEZING AND AUDIBLE WHEEZING NOTED THROUGHOUT UPON AUSCULTATION. NON-PRODUCTIVE DRY CROUPY COUGH NOTED THIS SHIFT. SPUTUM SPECIMEN STILL NEEDING TO BE OBTAINED. EDUCATED PT ON COLLECTION OF SPUTUM AT BEGINNING OF SHIFT. ENCOURAGED PT TO USE INCENTIVE SPIROMETER Q1H WHILE AWAKE THIS SHIFT. PT DEMONSTRATED APPROPRIATE USE AT BEGINNING OF SHIFT. PT TOLERATED RA WELL WITH NO COMPLAINTS. ACTIVE BOWEL SOUNDS NOTED IN ALL 4 QUADS UPON AUSCULTATION. ABDOMEN NOTED SOFT, ROUND, LARGE, AND NON-TENDER UPON PALPATION. FC SITE REMAINS C/D/I. URINE NOTED CLEAR, DARK YELLOW, WITH NORMAL URINE. VSS. REMAINS SAFE. CALL LIGHT WITHIN REACH. BED ALARM ON AND FUNCTIONING. WILL CONTINUE TO MONITOR.
[2019-06-29 06:00] LABS: POC Glucose,Bedside 127 (70-110)
[2019-06-29 11:48] LABS: POC Glucose,Bedside 157 (70-110)
--- NOTE | 2019-06-29 13:16 | HMH.ACPN2 ---
Internal Medicine - PN: Subj *Date: 06/29/19 *Time: 13:16 Interval history: Clinically she is stable, though the nurse feels like she is a bit more congested. I think her auscultation today is comparable to prior with decent air movement bilaterally but with rhonchi bilaterally. She does however show weight gain. She does not seem to have a whole lot of leg edema at this time. Her heart rate does seem to have slowed but is irregular. Exam Vital signs and Labs for Last 24 Hours: Temp Pulse Resp BP Pulse Ox 97.5 F L 104 H 20 158/88 H 97 06/29/19 11:55 06/29/19 11:55 06/29/19 11:55 06/29/19 11:55 06/29/19 11:55 Laboratory Results - last 24 hr 06/28/19 15:58: POC Glucose 222 H 06/28/19 20:49: POC Glucose 204 H 06/29/19 05:43: POC Glucose 127 H 06/29/19 11:32: POC Glucose 157 H I & O for Last 24 hours: Intake & Output 06/27/19 06/28/19 06/29/19 06/30/19 11:59 11:59 11:59 11:59 Intake Total 995 / 995 1337 / 1337 1584 / 1584 480 / 480 Output Total 1650 / 1650 525 / 525 1250 / 1250 315 / 315 Balance -655 / -655 812 / 812 334 / 334 165 / 165 Weight 189 lb 3 oz 193 lb 8 oz 199 lb 9 oz Microbiology Reports for the Last 24 Hours: Microbiology 06/26/19 01:58 Blood Blood Culture - Preliminary Staphylococcus epidermidis - Constitutional no acute distress (Her reports some degree of confusion.) - *Routine HEENT Exam Head: Present: normocephalic Eye: Present: PERRL ENT: Present: mucous membranes moist - *Routine Respiratory Exam Present: rhonchi. Absent: respiratory distress - *Routine Cardiovascular Exam Present: irregular rhythm - *Routine Abdominal Exam Present: soft - *Routine Extremities Exam Present: edema (Seems minimal despite weight gain.) - *Routine Neurological Exam Present: alert (She seems alert and is conversant. She reports on her lunch.) Assessment and Plan (1) Community acquired pneumonia Current visit: Yes Status: Acute Qualifiers: Laterality: right Lung location: upper lobe of lung Qualified Code(s): J18.9 - Pneumonia, unspecified organism Category: Medical Code(s): J18.9 - Pneumonia, unspecified organism (2) Atrial flutter Current visit: Yes Status: Acute Category: Medical Code(s): I48.92 - Unspecified atrial flutter (3) Morbid obesity Current visit: Yes Status: Chronic Category: Medical Code(s): E66.01 - Morbid (severe) obesity due to excess calories (4) Hypertension Current visit: Yes Status: Chronic Category: Medical Code(s): I10 - Essential (primary) hypertension (5) Hyperlipidemia Current visit: Yes Status: Chronic Category: Medical Code(s): E78.5 - Hyperlipidemia, unspecified (6) CKD (chronic kidney disease), stage IV Current visit: Yes Status: Acute Category: Medical Code(s): N18.4 - Chronic kidney disease, stage 4 (severe) - Assessment and plan all Dx Assessment and Plan for all problems:: 20 mg of IV Lasix is ordered. EKG is ordered. Chest x-ray in the morning. CMP is ordered.
--- NOTE | 2019-06-29 14:32 | ECG_ITS ---
APPROVED REPORT Exam: Resting ECG HR:71 bpm ECG Measurements Heart Rate 71 AXES QRSd 96 QRS 7 QT 348 T 49 QTc 378 <Conclusion> Atrial flutter with variable AV block Poor R Wave Progression Abnormal ECG Electronically signed by : Raulito Espinoza, 06/30/2019 13:02:00
[2019-06-29 14:34] LABS: Alanine Aminotransferase 15 U/L (12-78); Albumin Level 2.9 gm/dL (3.4-5.0); Alkaline Phosphatase 62 U/L (46-116); Anion Gap 16.4 mEq/L (5-15); Aspartate Amino Transferase 17 U/L (15-37); Bilirubin,Total 0.3 mg/dL (0.2-1.0); Blood Urea Nitrogen 56 mg/dL (7-18); Calcium 8.6 mg/dL (8.5-10.1); Carbon Dioxide 22 mmol/L (21.0-32.0); Chloride 103 mmol/L (98-107); Creatinine Clearance Estimated 35 mL/min (50-200); Creatinine,Serum 1.89 mg/dL (0.55-1.02); Estimated Glomerular Filt Rate 26 ml/min (>60); GFR (African American) 31 ML/MIN (>60); Glucose 203 mg/dL (74-106); Potassium 4.4 mmoL/L (3.5-5.1); Sodium 137 mmol/L (136-145); Total Protein,Serum 5.9 gm/dL (6.4-8.2)
--- NOTE | 2019-06-29 20:59 | PC.NURSE ---
Pt alert and oriented. Did make Dr. Michel aware that pt had crackles and sounded wet upon ascultation. He ordered a f/u CXR for holli am and he ordered lasix IV x 1 per aug. Has continued to tolerate RA well. CB in reach. Did also SL IV. VSS at this time. Report given to Surinder Harmon RN. Indwelling cath in place and draining clear yellow urine at this time.
[2019-06-29 21:28] LABS: POC Glucose,Bedside 230 (70-110)
[2019-06-29 22:08] LABS: POC Glucose,Bedside 220 (70-110)
[2019-06-30] VITALS (12 sets, daily range): BP systolic 132–188; BP diastolic 71–95; PULSE 54–116; RESP 18–20; TEMP 36.4–36.9; O2SAT 91–98; BMI 37.0
[2019-06-30 06:22] LABS: POC Glucose,Bedside 158 (70-110)
--- NOTE | 2019-06-30 07:00 | XR_ITS ---
PROCEDURE: XR CHEST 2V CLINICAL HISTORY: Pneumonia Follow-up pneumonia COMPARISON: CXR1 CHEST-PORTABLE from 01/04/2015 CXR2V XR chest 2V from 11/14/2017 XR CHEST PORTABLE from 06/26/2019 FINDINGS: Cardiomegaly without failure. There remains patchy density in the right upper lobe which may be due to small area of atelectasis or infiltrate slightly improved. Left basilar airspace disease has improved. There is are degenerative changes of the thoracic spine with kyphosis and multiple mild wedge compression changes and there are degenerative changes in the shoulders IMPRESSION: Improved left basilar infiltrate with persistent but improved infiltrate in the right upper lobe Dictated by: Sukhwinder Martinez MD 06/30/2019 09:41 Electronically signed by Sukhwinder Martinez MD in [facility] 06/30/2019 09:41
--- NOTE | 2019-06-30 08:05 | PC.NURSE ---
A&O X4. PERRLA. BILATERAL COMMUNITY ARTS OFFICER AND STRENGTH EQUAL AND STRONG. S1, S2 HEART SOUNDS NOTED UPON AUSCULTATION. +2 BILATERAL RADIAL AND PEDAL PULSES NOTED UPON PALPATION. AFLUTTER NOTED ON CYBER ANALYST THIS SHIFT. HX OF AFLUTTER NOTED. CAP REFILL < 3 SECONDS. NO EDEMA NOTED THIS SHIFT. BILATERAL INSPIRATORY AND EXPIRATORY WHEEZING NOTED THROUGHOUT LUNG LARA UPON AUSCULTATION, ALONG WITH AUDIBLE WHEEZING. PT NOTED WITH AN INTERMITTENT NON-PRODUCTIVE CROUPY COUGH THIS SHIFT. INFORMED RT THAT SPUTUM SPECIMEN STILL NEEDED TO BE COLLECTED. ENCOURAGED PT TO EXPECTORATE SPUTUM IF ABLE TOO THIS SHIFT. ENCOURAGED USE OF INCENTIVE SPIROMETER Q1H WHILE AWAKE THIS SHIFT. PT DEMONSTRATED APPROPRIATE USE OF IS AT BEGINNING OF SHIFT. ACTIVE BOWEL SOUNDS NOTED IN ALL 4 QUADS UPON AUSCULTATION. ABDOMEN NOTED, SOFT, ROUND, AND NON-TENDER UPON PALPATION. FC SITE NOTED C/D/I. ADEQUATE URINE OUTPUT NOTED THIS SHIFT. URINE NOTED CLEAR, BRIGHT YELLOW WITH NORMAL ODOR. VSS. REMAINS SAFE. BED ALARM REMAINS INTACT. CALL LIGHT WITHIN REACH. WILL CONTINUE TO MONITOR.
--- NOTE | 2019-06-30 08:51 | HMH.ACPN2 ---
Internal Medicine - PN: Subj *Date: 06/30/19 *Time: 08:53 Interval history: Blood culture positive for staph epidermidis. Sputum culture not obtained as yet. Patient denies chest pain and shortness of air. She states she still continues with her frequent nonproductive cough. She denies chest pain. She continues with a Aguilera catheter. She is eating without problems. Exam Vital signs and Labs for Last 24 Hours: Temp Pulse Resp BP Pulse Ox 98.4 F 116 H 18 154/95 H 94 L 06/30/19 08:00 06/30/19 08:00 06/30/19 08:00 06/30/19 08:00 06/30/19 08:00 Laboratory Results - last 24 hr 06/29/19 11:32: POC Glucose 157 H 06/29/19 13:44: Sodium 137, Potassium 4.4, Chloride 103, Carbon Dioxide 22, Anion Gap 16.4 H, BUN 56 H D, Creatinine 1.89 H D, Estimated Creat Clear 35, Estimated GFR 26 L, Est GFR ( Amer) 31 L D, Glucose 203 H, Calcium 8.6, Total Bilirubin 0.3, AST 17, ALT 15 D, Alkaline Phosphatase 62, Total Protein 5.9 L, Albumin 2.9 L, Globulin 3.0, Albumin/Globulin Ratio 1.0 L 06/29/19 16:19: POC Glucose 230 H 06/29/19 21:34: POC Glucose 220 H 06/30/19 05:41: POC Glucose 158 H I & O for Last 24 hours: Intake & Output 06/27/19 06/28/19 06/29/19 06/30/19 11:59 11:59 11:59 11:59 Intake Total 995 / 995 1337 / 1337 1584 / 1584 1200 / 1200 Output Total 1650 / 1650 525 / 525 1250 / 1250 1815 / 1815 Balance -655 / -655 812 / 812 334 / 334 -615 / -615 Weight 189 lb 3 oz 193 lb 8 oz 199 lb 9 oz 201 lb 8 oz Microbiology Reports for the Last 24 Hours: Microbiology 06/26/19 01:58 Blood Blood Culture - Preliminary Staphylococcus epidermidis - Constitutional no acute distress, obese Comments: Sitting on bedside and appears comfortable - *Routine Respiratory Exam Present: diminished air movement (Posteriorly) - *Routine Cardiovascular Exam Present: RRR, tachycardia (Monitor showing atrial flutter with ventricular rate between 100 and 120) - *Routine Abdominal Exam Present: soft, normoactive bowel sounds. Absent: tenderness - *Routine Extremities Exam Present: edema (Trace of right ankle edema) - *Routine Neurological Exam Present: alert, oriented X3 Assessment and Plan (1) Community acquired pneumonia Current visit: Yes Status: Acute Qualifiers: Laterality: right Lung location: upper lobe of lung Qualified Code(s): J18.9 - Pneumonia, unspecified organism Category: Medical Code(s): J18.9 - Pneumonia, unspecified organism (2) Atrial flutter Current visit: Yes Status: Acute Category: Medical Code(s): I48.92 - Unspecified atrial flutter (3) Morbid obesity Current visit: Yes Status: Chronic Category: Medical Code(s): E66.01 - Morbid (severe) obesity due to excess calories (4) Hypertension Current visit: Yes Status: Chronic Category: Medical Code(s): I10 - Essential (primary) hypertension (5) Hyperlipidemia Current visit: Yes Status: Chronic Category: Medical Code(s): E78.5 - Hyperlipidemia, unspecified (6) CKD (chronic kidney disease), stage IV Current visit: Yes Status: Acute Category: Medical Code(s): N18.4 - Chronic kidney disease, stage 4 (severe) - Assessment and plan all Dx Assessment and Plan for all problems:: Patient seems to be improving. She will be followed by cardiology. We will continue with IV vancomycin and nebs. She remains in atrial flutter with varying degrees of conduction.
--- NOTE | 2019-06-30 08:59 | HMH.ACPN ---
Internal Medicine - PN: Subj *Date: 06/30/19 *Time: 08:59 Exam Vital signs and Labs for Last 24 Hours: Temp Pulse Resp BP Pulse Ox 98.4 F 116 H 18 154/95 H 94 L 06/30/19 08:00 06/30/19 08:49 06/30/19 08:00 06/30/19 08:00 06/30/19 08:00 Laboratory Results - last 24 hr 06/29/19 11:32: POC Glucose 157 H 06/29/19 13:44: Sodium 137, Potassium 4.4, Chloride 103, Carbon Dioxide 22, Anion Gap 16.4 H, BUN 56 H D, Creatinine 1.89 H D, Estimated Creat Clear 35, Estimated GFR 26 L, Est GFR ( Amer) 31 L D, Glucose 203 H, Calcium 8.6, Total Bilirubin 0.3, AST 17, ALT 15 D, Alkaline Phosphatase 62, Total Protein 5.9 L, Albumin 2.9 L, Globulin 3.0, Albumin/Globulin Ratio 1.0 L 06/29/19 16:19: POC Glucose 230 H 06/29/19 21:34: POC Glucose 220 H 06/30/19 05:41: POC Glucose 158 H I & O for Last 24 hours: Intake & Output 06/27/19 06/28/19 06/29/19 06/30/19 23:59 23:59 23:59 23:59 Intake Total 1372 / 1372 1109 / 1109 1974 / 1974 60 / 60 Output Total 1100 / 1300 775 / 775 1465 / 1465 1150 / 1150 Balance 272 / 72 334 / 334 510 / 510 -1090 / -1090 Weight 85.814 kg 87.77 kg 90.52 kg 91.399 kg Microbiology Reports for the Last 24 Hours: Microbiology 06/26/19 01:58 Blood Blood Culture - Preliminary Staphylococcus epidermidis Assessment and Plan (1) Community acquired pneumonia Current visit: Yes Status: Acute Qualifiers: Qualified Code(s): J18.9 - Pneumonia, unspecified organism Category: Medical Code(s): J18.9 - Pneumonia, unspecified organism (2) Atrial flutter Current visit: Yes Status: Acute Category: Medical Code(s): I48.92 - Unspecified atrial flutter (3) Morbid obesity Current visit: Yes Status: Chronic Category: Medical Code(s): E66.01 - Morbid (severe) obesity due to excess calories (4) Hypertension Current visit: Yes Status: Chronic Category: Medical Code(s): I10 - Essential (primary) hypertension (5) Hyperlipidemia Current visit: Yes Status: Chronic Category: Medical Code(s): E78.5 - Hyperlipidemia, unspecified (6) CKD (chronic kidney disease), stage IV Current visit: Yes Status: Acute Category: Medical Code(s): N18.4 - Chronic kidney disease, stage 4 (severe) The patient's infection will respond to the chosen ABx?: Yes Is the patient receiving the right drug, dose, and route?: Yes Could a more targeted ABx be ordered?: No (SPUTUM CX YET TO BE OBTAINED; STAPH EPI IN BLOOD SENSITIVE TO VANC)
[2019-06-30 11:45] LABS: POC Glucose,Bedside 187 (70-110)
--- NOTE | 2019-06-30 13:00 | HMH.PNCARD ---
Subjective Date: 06/30/19 Time: 11:00 Principal diagnosis: A. fib, CHF Interval history: 79-year-old white female in bed in no acute distress. She states that her breathing has significantly improved since admission. Telemetry shows heart rate with improved control into the 80 to 100 bpm range. She continues in atrial flutter with variable block. Exam Vital signs and Labs for Last 24 Hours: Temp Pulse Resp BP Pulse Ox 97.9 F 105 H 18 132/89 91 L 06/30/19 12:00 06/30/19 12:00 06/30/19 12:00 06/30/19 12:00 06/30/19 12:00 Laboratory Results - last 24 hr 06/29/19 13:44: Sodium 137, Potassium 4.4, Chloride 103, Carbon Dioxide 22, Anion Gap 16.4 H, BUN 56 H D, Creatinine 1.89 H D, Estimated Creat Clear 35, Estimated GFR 26 L, Est GFR ( Amer) 31 L D, Glucose 203 H, Calcium 8.6, Total Bilirubin 0.3, AST 17, ALT 15 D, Alkaline Phosphatase 62, Total Protein 5.9 L, Albumin 2.9 L, Globulin 3.0, Albumin/Globulin Ratio 1.0 L 06/29/19 16:19: POC Glucose 230 H 06/29/19 21:34: POC Glucose 220 H 06/30/19 05:41: POC Glucose 158 H 06/30/19 11:37: POC Glucose 187 H I & O for Last 24 hours: Intake & Output 06/28/19 06/29/19 06/30/19 07/01/19 11:59 11:59 11:59 11:59 Intake Total 1337 / 1337 1584 / 1584 1440 / 1440 Output Total 525 / 525 1250 / 1250 2014 Balance 812 / 812 334 / 334 -575 / -575 Weight 193 lb 8 oz 199 lb 9 oz 201 lb 8 oz - *Routine Respiratory Exam Present: CTA bilaterally. Absent: accessory muscle use, rales, rhonchi, wheezes - *Routine Cardiovascular Exam Present: irregular rhythm. Absent: murmur, gallop, rubs - *Routine Extremities Exam Absent: edema, calf tenderness - *Routine Neurological Exam Present: alert, oriented X3, moving all extremities Progress Note: A&P (1) Community acquired pneumonia Status: Acute Current Visit: Yes (2) Atrial flutter Status: Acute Current Visit: Yes (3) Morbid obesity Status: Chronic Current Visit: Yes (4) Hypertension Status: Chronic Current Visit: Yes (5) Hyperlipidemia Status: Chronic Current Visit: Yes (6) CKD (chronic kidney disease), stage IV Status: Acute Current Visit: Yes Assessment and Plan for All Diagnoses:: 1. Atrial flutter previously with rapid ventricular response, now controlled on combination of digoxin, Cardizem and bisoprolol. Recommend referring the patient to electrophysiology for possible atrial flutter ablation and she may need pacemaker insertion at the same time. 2. Pneumonia, improving on medical therapy per Dr. Michel. 3. Chronic kidney disease, stage IV, stable
--- NOTE | 2019-06-30 14:09 | DIET.NUTRFU ---
Pt with moderately high BG- 230, 220, 158. (DM with infection) She is not able to use large utensils we have tried and requires total assistance feeding dt tremors. Samuel (diabetic) added for snack dt pt stating she has trouble eating enough dt her inability to self feed and not wanting to be a bother. Pt and encouraged to utilize nurses for help feeding. I will try to assist with this as well and continue to monitor BG.
[2019-06-30 16:34] LABS: POC Glucose,Bedside 269 (70-110)
--- NOTE | 2019-06-30 16:40 | PC.NURSE ---
RN notified of elevated BP
--- NOTE | 2019-06-30 18:24 | PC.NURSE ---
Pt has rested in bed without complaint of any s/sx of distress. Continues to receive medications without difficulty. No other issues/concerns noted at this time.
--- NOTE | 2019-06-30 19:13 | PC.NURSE ---
report given to raza
[2019-06-30 23:08] LABS: POC Glucose,Bedside 239 (70-110)
[2019-07-01] VITALS (12 sets, daily range): BP systolic 122–166; BP diastolic 59–89; PULSE 66–114; RESP 17–21; TEMP 36.6–36.9; O2SAT 94–99; BMI 37.0
--- NOTE | 2019-07-01 04:36 | PC.NURSE ---
PT HAS SLEPT. AT FLUTTER ON TELEMETRY. MANDUJANO TO BSD WITH MEDIUM YELLOW URINE. PT WITH FLAT AFFECT, QUIET.
[2019-07-01 05:43] LABS: POC Glucose,Bedside 170 (70-110)
--- NOTE | 2019-07-01 07:52 | HMH.PNCARD ---
Subjective Date: 07/01/19 Time: 07:52 Principal diagnosis: A. fib, CHF Interval history: 79 yo WF at bedside eating breakfast. SOA has improved. Telemetry shows improved rate control but still with A. flutter with variable block. Exam Vital signs and Labs for Last 24 Hours: Temp Pulse Resp BP Pulse Ox 98.0 F 80 18 166/59 H 94 L 07/01/19 04:00 07/01/19 05:55 07/01/19 04:00 07/01/19 04:00 07/01/19 05:55 Laboratory Results - last 24 hr 06/30/19 11:37: POC Glucose 187 H 06/30/19 16:08: POC Glucose 269 H 06/30/19 20:31: POC Glucose 239 H 07/01/19 05:28: POC Glucose 170 H I & O for Last 24 hours: Intake & Output 06/28/19 06/29/19 06/30/19 07/01/19 11:59 11:59 11:59 11:59 Intake Total 1337 / 1337 1584 / 1584 1440 / 1440 290 / 290 Output Total 525 / 525 1250 / 1250 2014 600 / 600 Balance 812 / 812 334 / 334 -575 / -575 -310 / -310 Weight 193 lb 8 oz 199 lb 9 oz 201 lb 8 oz 201 lb 8 oz Microbiology Reports for the Last 24 Hours: Microbiology 06/26/19 01:58 Blood Blood Culture - Final NO GROWTH AFTER 5 DAYS - *Routine Respiratory Exam Present: decreased breath sounds. Absent: accessory muscle use, rales, rhonchi, wheezes Comments: Rales and rhonchi improved. - *Routine Cardiovascular Exam Present: RRR, irregular rhythm. Absent: murmur, gallop, rubs - *Routine Extremities Exam Present: edema. Absent: calf tenderness Progress Note: A&P (1) Community acquired pneumonia Status: Acute Current Visit: Yes (2) Atrial flutter Status: Acute Current Visit: Yes (3) Morbid obesity Status: Chronic Current Visit: Yes (4) Hypertension Status: Chronic Current Visit: Yes (5) Hyperlipidemia Status: Chronic Current Visit: Yes (6) CKD (chronic kidney disease), stage IV Status: Acute Current Visit: Yes Assessment and Plan for All Diagnoses:: No new recommendations. Continue current meds. Again, recommend outpatient referral to EP for evaluation of ablation and pacemaker implantation.
--- NOTE | 2019-07-01 08:29 | HMH.ACPN2 ---
Internal Medicine - PN: Subj *Date: 07/01/19 *Time: 08:45 Interval history: Patient is slow to describe how she feels this morning. She states she must be better. She has some shortness of breath at times. She continues with a cough. She cannot remember what she did yesterday. According to notes she is eating well. She has been out of bed. She continues with Aguilera catheter. Exam Vital signs and Labs for Last 24 Hours: Temp Pulse Resp BP Pulse Ox 98.0 F 80 18 166/59 H 94 L 07/01/19 04:00 07/01/19 05:55 07/01/19 04:00 07/01/19 04:00 07/01/19 05:55 Laboratory Results - last 24 hr 06/30/19 11:37: POC Glucose 187 H 06/30/19 16:08: POC Glucose 269 H 06/30/19 20:31: POC Glucose 239 H 07/01/19 05:28: POC Glucose 170 H I & O for Last 24 hours: Intake & Output 06/28/19 06/29/19 06/30/19 07/01/19 11:59 11:59 11:59 11:59 Intake Total 1337 / 1337 1584 / 1584 1440 / 1440 290 / 290 Output Total 525 / 525 1250 / 1250 2014 600 / 600 Balance 812 / 812 334 / 334 -575 / -575 -310 / -310 Weight 193 lb 8 oz 199 lb 9 oz 201 lb 8 oz 201 lb 8 oz Microbiology Reports for the Last 24 Hours: Microbiology 06/26/19 01:58 Blood Blood Culture - Final NO GROWTH AFTER 5 DAYS Radiology Reports for the Last 24 Hours: 06/30/2019 chest x-ray IMPRESSION: Improved left basilar infiltrate with persistent but improved infiltrate in the right upper lobe - Constitutional no acute distress Comments: Flat affect - *Routine Respiratory Exam Comments: Bilateral rhonchi clearing somewhat with cough - *Routine Cardiovascular Exam Present: irregular rhythm (Monitor showing atrial fib with controlled ventricular response) - *Routine Abdominal Exam Present: soft, normoactive bowel sounds. Absent: tenderness Comments: Continues with Aguilera catheter - *Routine Extremities Exam Absent: edema, calf tenderness - *Routine Neurological Exam Present: alert, normal speech Slow with responses Assessment and Plan (1) Community acquired pneumonia Current visit: Yes Status: Acute Qualifiers: Laterality: right Lung location: upper lobe of lung Qualified Code(s): J18.9 - Pneumonia, unspecified organism Category: Medical Code(s): J18.9 - Pneumonia, unspecified organism (2) Atrial flutter Current visit: Yes Status: Acute Category: Medical Code(s): I48.92 - Unspecified atrial flutter (3) Morbid obesity Current visit: Yes Status: Chronic Category: Medical Code(s): E66.01 - Morbid (severe) obesity due to excess calories (4) Hypertension Current visit: Yes Status: Chronic Category: Medical Code(s): I10 - Essential (primary) hypertension (5) Hyperlipidemia Current visit: Yes Status: Chronic Category: Medical Code(s): E78.5 - Hyperlipidemia, unspecified (6) CKD (chronic kidney disease), stage IV Current visit: Yes Status: Acute Category: Medical Code(s): N18.4 - Chronic kidney disease, stage 4 (severe) - Assessment and plan all Dx Assessment and Plan for all problems:: Remove Aguilera catheter. Per cardiology: telemetry shows improved rate control but still with atrial flutter with variable block with recommendations to continue current meds and recommend outpatient referral to EP for evaluation of possible ablation and/or pacemaker implantation. Dr. Michel has discussed EP evaluation and possible ablation/pacemaker implantation with Mr. Bobo. He states that patient would probably not agree to this. We will add Sinemet for Parkinson-like symptoms. We will continue with IV antibiotics and duo nebs. PT consult. Plan is for patient to be discharged tomorrow.
[2019-07-01 12:03] LABS: POC Glucose,Bedside 228 (70-110)
[2019-07-01 16:59] LABS: POC Glucose,Bedside 197 (70-110)
--- NOTE | 2019-07-01 18:27 | PC.NURSE ---
PT IS RESTING IN BED. NO COMPLAINTS OF DISCOMFORT. PT WAS ABLE TO AMBULATE TO THE BATHROOM TO TAKE A SHOWER WITH 1 ASSIST BUT WAS HOWEVER VERY WEAK. ACCORDING TO SHE HAS BEEN WALKING MORE HERE THAN SHE EVER DOES AT HOME. PT HAS BEEN EATING AND DRINKING VERY WELL. VERY SOA AND AUDIBLE WHEEZES WITH ANY EXERTION. PT HAVE BEEN VOIDING SINCE CATHETER WAS DC'D . WILL CONTINUE TO MONITOR.
[2019-07-01 21:50] LABS: Anion Gap 15.2 mEq/L (5-15); Blood Urea Nitrogen 68 mg/dL (7-18); Calcium 8.3 mg/dL (8.5-10.1); Carbon Dioxide 22 mmol/L (21.0-32.0); Chloride 103 mmol/L (98-107); Creatinine Clearance Estimated 32 mL/min (50-200); Creatinine,Serum 2.12 mg/dL (0.55-1.02); Estimated Glomerular Filt Rate 23 ml/min (>60); GFR (African American) 27 ML/MIN (>60); Glucose 247 mg/dL (74-106); Potassium 4.2 mmoL/L (3.5-5.1); Sodium 136 mmol/L (136-145); Vancomycin,Trough 16.3 mcg/ml (10.0-20.0)
[2019-07-02] VITALS: BP 158/89; PULSE 100; PULSE 113; RESP 19; TEMP 36.7; O2SAT 97
[2019-07-02 04:00] VITALS: BP 143/62; PULSE 58; RESP 20; TEMP 36.6; O2SAT 92
--- NOTE | 2019-07-02 04:28 | PC.NURSE ---
PT HAS SLEPT INTERMITTENTLY. REMAINS ON RA. LOOSE COUGH NOTED BUT UNABLE TO COUGH UP SPUTUM. CONTINUES IN ATRIAL FLUTTER ON TELEMETRY. PT VOIDING PER [facility].
[2019-07-02 04:38] LABS: POC Glucose,Bedside 226 (70-110)
[2019-07-02 05:00] VITALS: BMI 37.9
--- NOTE | 2019-07-02 05:30 | PC.NURSE ---
nurse notified of weight gain
[2019-07-02 05:32] LABS: POC Glucose,Bedside 175 (70-110)
[2019-07-02 06:02] VITALS: PULSE 57; PULSE 60; O2SAT 94
[2019-07-02 08:00] VITALS: BP 157/74; PULSE 115; PULSE 120; RESP 16; TEMP 36.6; O2SAT 97
--- NOTE | 2019-07-02 08:00 | P.PN_ITS ---
Internal Medicine - PN: Subj *Date: 07/02/19 *Time: 08:05 Interval history: Patient states she is dyspneic with exertion. Otherwise she is not short of breath. She continues with a nonproductive cough. She has been eating without problems. Bowels have moved. She is voiding without difficulty since Aguilera catheter removed. Physical therapy saw her yesterday. She did walk a few steps with assistance. They suggested home health physical therapy. Exam Vital signs and Labs for Last 24 Hours: Temp Pulse Resp BP Pulse Ox 97.9 F 60 20 143/62 H 94 L 07/02/19 04:00 07/02/19 06:02 07/02/19 04:00 07/02/19 04:00 07/02/19 06:02 Laboratory Results - last 24 hr 07/01/19 11:35: POC Glucose 228 H 07/01/19 16:51: POC Glucose 197 H 07/01/19 20:12: POC Glucose 226 H 07/01/19 21:25: Sodium 136, Potassium 4.2, Chloride 103, Carbon Dioxide 22, Anion Gap 15.2 H, BUN 68 H, Creatinine 2.12 H, Estimated Creat Clear 32, Es timated GFR 23 L, Est GFR ( Amer) 27 L, Glucose 247 H, Calcium 8.3 L, Vancomycin Trough 16.3 07/02/19 05:26: POC Glucose 175 H I & O for Last 24 hours: Intake & Output 06/29/19 06/30/19 07/01/19 07/02/19 11:59 11:59 11:59 11:59 Intake Total 1584 / 1584 1440 / 1440 650 / 650 490 / 490 Output Total 1250 / 1250 2014 1150 / 1150 Balance 334 / 334 -575 / -575 -500 / -500 490 / 490 Weight 199 lb 9 oz 201 lb 8 oz 201 lb 8 oz 206 lb 2 oz - Constitutional no acute distress - *Routine Respiratory Exam Present: CTA bilaterally (Anteriorly and posteriorly) - *Routine Cardiovascular Exam Present: RRR Comments: Monitor showing atrial fib flutter with ventricular rate 90-100 - *Routine Abdominal Exam Present: soft, normoactive bowel sounds. Absent: tenderness, distended - *Routine Extremities Exam Absent: edema, calf tenderness - *Routine Neurological Exam Present: alert, oriented X3 Slow responses Assessment and Plan (1) Community acquired pneumonia Current visit: Yes Status: Acute Qualifiers: Laterality: right Lung location: upper lobe of lung Qualified Code(s): J18.9 - Pneumonia, unspecified organism Category: Medical Code(s): J18.9 - Pneumonia, unspecified organism (2) Atrial flutter Current visit: Yes Status: Acute Category: Medical Code(s): I48.92 - Unspecified atrial flutter (3) Morbid obesity Current visit: Yes Status: Chronic Category: Medical Code(s): E66.01 - Morbid (severe) obesity due to excess calories (4) Hypertension Current visit: Yes Status: Chronic Category: Medical Code(s): I10 - Essential (primary) hypertension (5) Hyperlipidemia Current visit: Yes Status: Chronic Category: Medical Code(s): E78.5 - Hyperlipidemia, unspecified (6) CKD (chronic kidney disease), stage IV Current visit: Yes Status: Acute Category: Medical Code(s): N18.4 - Chronic kidney disease, stage 4 (severe) (7) Debility Current visit: Yes Status: Chronic Category: Medical Code(s): R53.81 - Other malaise - Assessment and plan all Dx Assessment and Plan for all problems:: Patient to be discharged home today. She will need home health PT if she agrees. She will need to continue with her incentive spirometer and antibiotics
--- NOTE | 2019-07-02 08:32 | HMH.DCSUM ---
General - General Admission date:: 06/27/19 Discharge date: 07/02/19 HPI HPI: Ms. Dixon is a 79-year-old female with a history of hypertension, hyperlipidemia, morbid obesity, atrial fibrillation, and known diastolic dysfunction. She states she has felt poorly for the past week with a cough and some shortness of breath. This progressively worsened and she was brought to the emergency room by ambulance for evaluation. She was found to have a pneumonia and was admitted and started on IV antibiotics. Hospital Course Hospital Course: The patient's initial chest x-ray showed cardiomegaly with a suspected right upper lobe and possible left lower lobe infiltrate. She was started on nebs, antibiotics, and most of her home medications. Sputum cultures were ordered but the patient was unable to provide a sputum sample. The patient did develop atrial flutter with rapid ventricular response despite 3 rate controlling medications including digoxin, Cardizem, and Coreg. Cardiology was therefore consulted. She has been on chronic anticoagulation therapy. Her initial troponin was upper limits of normal, however cardiology felt this was due to her chronic kidney disease they ordered an echo she did have an echo which showed biatrial enlargement and an EF of 55%. There was a thickened and calcified aortic valve without aortic stenosis and moderate mitral and tricuspid regurgitation. They increased her Cardizem 280 mg twice a day. The patient did begin feeling better. Her shortness of breath and cough improved. Her preliminary blood culture showed staph and her final blood culture came back positive for staph epidermidis. She was started on vancomycin. The patient's heart rate continued to remain elevated and she was switched from Coreg to bisoprolol for better rate control. Cardiology wanted her to consider an outpatient referral to EP for possible AV node ablation with pacemaker but the patient was resistant. She did began having some rhonchi bilaterally and was given a dose of Lasix. She had a repeat chest x-ray showing improved left basilar infiltrate with persistent but improved infiltrate in the right upper lobe. Her heart rate was much improved with the bisoprolol but she remained in a flutter. Sinemet was added for Parkinson-like symptoms and she was continued on IV antibiotics and duo nebs. A PT consult was ordered and they felt she would need home health upon discharge. The patient was stable to be discharged home on antibiotics and will follow up with Dr. Michel in the office. Objective Vital signs: Temp Pulse Resp BP Pulse Ox 97.9 F 60 20 143/62 H 94 L 07/02/19 04:00 07/02/19 06:02 07/02/19 04:00 07/02/19 04:00 07/02/19 06:02 Narrative: - Constitutional no acute distress - *Routine HEENT Exam Head: Present: normocephalic Eye: Present: EOMI, PERRL ENT: Present: mucous membranes moist - *Routine Neck Exam Present: supple. Absent: lymphadenopathy - *Routine Respiratory Exam Present: rhonchi (right base), wheezes (throughout) - *Routine Cardiovascular Exam Present: irregularly irregular - *Routine Abdominal Exam Present: soft, normoactive bowel sounds. Absent: tenderness - *Routine Extremities Exam Absent: cyanosis, clubbing, edema - *Routine Skin Exam Present: warm. Absent: rash - *Routine Neurological Exam Present: alert, oriented X3 Results Labs on day of discharge: Labs from last 24 hours 07/02/19 07/01/19 07/01/19 05:26 21:25 20:12 Sodium 136 Potassium 4.2 Chloride 103 Carbon Dioxide 22 Anion Gap 15.2 H BUN 68 H Creatinine 2.12 H Estimated Creat Clear 32 Estimated GFR 23 L Est GFR ( Amer) 27 L Glucose 247 H POC Glucose 175 H 226 H Calcium 8.3 L Vancomycin Trough 16.3 07/01/19 07/01/19 16:51 11:35 Sodium Potassium Chloride Carbon Dioxide Anion Gap BUN Creatinine Estimated Creat Alyssa
[2019-07-02 09:59] VITALS: PULSE 100
--- NOTE | 2019-07-02 10:01 | ECG_ITS ---
APPROVED REPORT Exam: Resting ECG HR:102 bpm ECG Measurements Heart Rate 102 AXES ND P 233 QRSd 102 QRS 66 QT 282 T 260 QTc 367 <Conclusion> Atrial flutter with variable AV block Late r wave progression Unchanged STTW changes - ? dig effect Abnormal ECG Electronically signed by : Oj Mccarthy, 07/03/2019 12:58:19
--- NOTE | 2019-07-02 10:06 | HMH.PNCARD ---
Subjective Date: 07/02/19 Time: 10:06 Principal diagnosis: A. fib, CHF Interval history: This is a 79-year-old white female who was admitted to the hospital and found to be in atrial flutter with RVR. The patient has been on 3 rate controlling medications for her atrial flutter. She is currently on digoxin, Cardizem and bisoprolol. The patient remains in atrial flutter this morning. Her rate is higher than we would like for it to be in the 90s. She denies any chest pain or pressure. She denies any racing or fluttering of the heart. She denies any fever, chills, nausea, vomiting, diarrhea, PND or orthopnea. On an outpatient basis the patient should consider a referral to electrophysiology for possible AV node ablation with pacemaker but she has kind of been hesitant about doing this. Exam Vital signs and Labs for Last 24 Hours: Temp Pulse Resp BP Pulse Ox 97.9 F 100 H 16 157/74 H 97 07/02/19 08:00 07/02/19 09:59 07/02/19 08:00 07/02/19 08:00 07/02/19 08:00 Laboratory Results - last 24 hr 07/01/19 11:35: POC Glucose 228 H 07/01/19 16:51: POC Glucose 197 H 07/01/19 20:12: POC Glucose 226 H 07/01/19 21:25: Sodium 136, Potassium 4.2, Chloride 103, Carbon Dioxide 22, Anion Gap 15.2 H, BUN 68 H, Creatinine 2.12 H, Estimated Creat Clear 32, Estimated GFR 23 L, Est GFR ( Amer) 27 L, Glucose 247 H, Calcium 8.3 L, Vancomycin Trough 16.3 07/02/19 05:26: POC Glucose 175 H I & O for Last 24 hours: Intake & Output 06/29/19 06/30/19 07/01/19 07/02/19 23:59 23:59 23:59 23:59 Intake Total 1974 / 1974 540 / 540 650 / 650 462 / 462 Output Total 1465 / 1465 1350 / 1350 1150 / 1150 Balance 510 / 510 -810 / -810 -500 / -500 462 / 462 Weight 199 lb 9 oz 201 lb 8 oz 201 lb 8 oz 206 lb 2 oz Narrative: Telemetry strip is atrial flutter with a rate of 96. - Constitutional no acute distress, obese - *Routine HEENT Exam Head: Present: normocephalic, atraumatic Eye: Present: EOMI, PERRL ENT: Present: mucous membranes moist - *Routine Neck Exam Present: supple, full ROM, normal carotid upstroke. Absent: JVD, carotid bruit, lymphadenopathy - *Routine Respiratory Exam Present: CTA bilaterally - *Routine Cardiovascular Exam Present: Normal S1, Normal S2, murmur, irregularly irregular - *Routine Abdominal Exam Present: soft, normoactive bowel sounds. Absent: tenderness, distended - *Routine Extremities Exam Present: full ROM, pulses intact, normal capillary refill. Absent: cyanosis, clubbing, edema - *Routine Skin Exam Present: intact, warm. Absent: erythema, rash - *Routine Neurological Exam Present: alert, oriented X3 - Detailed Eye Exam Eyelids: Left normal inspection Progress Note: A&P (1) Community acquired pneumonia Status: Acute Current Visit: Yes (2) Atrial flutter Status: Acute Current Visit: Yes (3) Morbid obesity Status: Chronic Current Visit: Yes (4) Hypertension Status: Chronic Current Visit: Yes (5) Hyperlipidemia Status: Chronic Current Visit: Yes (6) CKD (chronic kidney disease), stage IV Status: Acute Current Visit: Yes (7) Debility Status: Chronic Current Visit: Yes Assessment and Plan for All Diagnoses:: [Plan: 1. Patient was admitted to the hospital and found to have pneumonia. This is being treated per her primary care provider. Will defer. 2. The patient was also in atrial flutter with RVR. Her rate has improved. However her heart rate is still a little bit higher today than we would like for it to be. We will increase her Cardizem CD to 240 mg p.o. twice daily for better heart rate control. 3. The patient denies any chest pain or pressure. No plans for invasive cardiac testing at this time. 4. Consider an EP evaluation on an outpatient basis for possible AV node ablation and pacemaker placement. The patient has been hesitant about doing this. 5. Her blood pressure is well controlled. 6. Her LDL goal is less than 100.
--- NOTE | 2019-07-02 10:09 | HMH.PHAINT ---
DISCHARGE COUNSELING DONE WITH PTS AND COMPLETED FOR ALL MEDS. DRUG MONOGRAPHS GIVEN FOR ALL NEW MEDS. VERBALIZED UNDERSTANDING.
--- NOTE | 2019-07-02 10:23 | SW/DCPLANNER ---
Addendum entered by Estrella Fowler 07/02/19 11:30: Sandra from [facility] has confirmed that patient information has been received and services will begin for this patient. Original Note: Home health services has been ordered by Dr Michel. I have spoke with patient and her regarding home health services. Patient will discharge home today and is agreeable to services. Patient has selected to use [facility]. Patient information has been faxed to [facility]. I will follow up with [facility] this afternoon. Patient will discharge home today. Patient has stated that she has all DME needed at home. Patient has no further needs at home at this time.
--- NOTE | 2019-07-02 10:43 | HMH.PHACONS ---
- Pharmacy Consult Date: 07/02/19 Time: 10:43 Referring provider: DR. BLAKELY Reason for Consult:: BASED ON VANCOMYCIN TROUGH LEVEL AND PATIENT FACTORS, RECOMMEND CONTINUING VANCOMYCIN 1500 MG IV Q36H. PATIENT IS BEING DISCHARGED HOME ON CEFDINIR TODAY. Allergies and ADEs:: Allergies Allergy/AdvReac Type Severity Reaction Status Date / Time No Known Allergies Allergy Verified 06/16/19 09:52 Home Medications:: Home Medications Medication Instructions Recorded Confirmed Type allopurinol 100 mg tablet 100 mg PO DAILY 06/16/19 06/26/19 History apixaban 5 mg tablet 5 mg PO BID 06/16/19 06/26/19 History ascorbate calcium (vitamin C) 500 500 mg PO DAILY 06/16/19 06/26/19 History mg tablet aspirin 81 mg tablet,delayed 81 mg PO DAILY 06/16/19 06/26/19 History release cholecalciferol (vitamin D3) 50,000 unit PO WEEKLY 06/16/19 06/26/19 History 50,000 unit oral wafer digoxin 125 mcg (0.125 mg) tablet 125 mcg PO DAILY 06/16/19 06/26/19 History fenofibrate nanocrystallized 145 145 mg PO DAILY 06/16/19 06/26/19 History mg tablet losartan 50 mg tablet 50 mg PO DAILY 06/16/19 06/26/19 History sertraline 25 mg tablet 25 mg PO DAILY 06/16/19 06/26/19 History sitagliptin 100 mg tablet 50 mg PO DAILY 06/16/19 06/26/19 History Carbidopa/Levodopa 1 each PO BID #60 tab 07/02/19 Rx [Carbidopa/Levodopa 25/100mg Tablet] Cefdinir [Omnicef 300mg Capsule] 300 mg PO BID #20 cap 07/02/19 Rx bisoproloL fumarate [Zebeta 5mg 10 mg PO BID #60 tab 07/02/19 Rx tablet] dilTIAZem HCL [Cardizem 180mg ER 180 mg PO BID #60 cap.er.24h 07/02/19 Rx capsule] Height: 1.57 m Weight: 93.497 kg Laboratory Results:: Laboratory Results - last 24 hr 07/01/19 11:35: POC Glucose 228 H 07/01/19 16:51: POC Glucose 197 H 07/01/19 20:12: POC Glucose 226 H 07/01/19 21:25: Sodium 136, Potassium 4.2, Chloride 103, Carbon Dioxide 22, Anion Gap 15.2 H, BUN 68 H, Creatinine 2.12 H, Estimated Creat Clear 32, Estimated GFR 23 L, Est GFR ( Amer) 27 L, Glucose 247 H, Calcium 8.3 L, Vancomycin Trough 16.3 07/02/19 05:26: POC Glucose 175 H Medical History: Reports:: Atrial Fibrillation (flutter), Diabetes Mellitus Type 2, Hyperlipidemia, Hypertension, Renal Insufficiency Assessment and Plan (1) Community acquired pneumonia Current visit: Yes Status: Acute Qualifiers: Laterality: right Lung location: upper lobe of lung Qualified Code(s): J18.9 - Pneumonia, unspecified organism Category: Medical Code(s): J18.9 - Pneumonia, unspecified organism (2) Atrial flutter Current visit: Yes Status: Acute Category: Medical Code(s): I48.92 - Unspecified atrial flutter (3) Morbid obesity Current visit: Yes Status: Chronic Category: Medical Code(s): E66.01 - Morbid (severe) obesity due to excess calories (4) Hypertension Current visit: Yes Status: Chronic Category: Medical Code(s): I10 - Essential (primary) hypertension (5) Hyperlipidemia Current visit: Yes Status: Chronic Category: Medical Code(s): E78.5 - Hyperlipidemia, unspecified (6) CKD (chronic kidney disease), stage IV Current visit: Yes Status: Acute Category: Medical Code(s): N18.4 - Chronic kidney disease, stage 4 (severe) (7) Debility Current visit: Yes Status: Chronic Category: Medical Code(s): R53.81 - Other malaise
== END 2019-07-02 11:41 | disposition home health service (06) | DRG 194 ==
LOC: ER 03:15 → 2ND 03:19
PROVIDERS: Physician Assistant; Admitting Provider Family Medicine; Emergency Provider Emergency Medicine; PCP Family Medicine; Visit Provider Family Medicine
DX: J18.9 Pneumonia, unspecified organism (principal); I13.0 Hypertensive heart and chronic kidney disease with heart failure and stage 1 through stage 4 chronic kidney disease, or unspecified chronic kidney disease; I50.32 Chronic diastolic (congestive) heart failure; N18.4 Chronic kidney disease, stage 4 (severe); I48.92 Unspecified atrial flutter; E11.22 Type 2 diabetes mellitus with diabetic chronic kidney disease; Z87.891 Personal history of nicotine dependence; Z79.899 Other long term (current) drug therapy; Z79.01 Long term (current) use of anticoagulants; Z79.84 Long term (current) use of oral hypoglycemic drugs
CPT/HCPCS: 36415; 71045; 71046; 80048; 80053; 80162; 80202; 81001; 82962; 83605; 84436; 84443; 84479; 84484; 85007; 85025; 87040; 87077; 87186; 87275; 87276; 93005; 93306; 94640; 94761; 96365; 96375; 97116; 97161; 99285; G0378; J0456; J3370

== ENCOUNTER → 2019-07-14 15:01 | Outpatient (CLI) | payer MEDICARE, OTHER, SELFPAY ==
--- NOTE | 2019-07-14 15:06 | XR_ITS ---
PROCEDURE: XR CHEST 2V CLINICAL HISTORY: PNEUMONIA COMPARISON: CXR2V XR chest 2V from 11/14/2017 XR CHEST PORTABLE from 06/26/2019 XR CHEST 2V from 06/30/2019 FINDINGS: There is cardiomegaly with an atherosclerotic aorta without active CHF. There are new bilateral pleural effusions and there is some consolidation of both lung bases. Atelectasis and/or infiltrate would have to be considered. A few scattered small hyperdense pulmonary nodules are seen bilaterally likely stable granulomas. No acute bony abnormalities. IMPRESSION: New bilateral pleural effusions with some consolidation of the adjacent lung bases. Mild infiltrate and/or atelectasis should be considered. Dictated by: Reza Gautam 07/14/2019 15:34 Electronically signed by Reza Gautam in [facility] 07/14/2019 15:34
== END ==
PROVIDERS: PCP Family Medicine; Visit Provider Family Medicine
DX: J18.9 Pneumonia, unspecified organism (principal)
CPT/HCPCS: 71046

== ENCOUNTER 2019-07-17 16:43 | Observation (INO) ==
--- NOTE | 2019-07-17 16:53 | Emergency Department Note ---
ED Disposition Clinical Impression: Bilateral pleural effusion, Generalized weakness, Morbid obesity, Chronic atrial fibrillation, Elevated brain natriuretic peptide (BNP) level, Peripheral edema, Debility Disposition: Admitted as Observation Condition on Discharge: Fair (Stable) Referrals: Provider,Referral, [Primary Care Provider] - Time of Disposition: 19:05 - Critical Care Critical Care Time: No Attestation: On , the high probability of a clinically significant, sudden or life threatening deterioration of the following system(s) required my full and direct attention, intervention and personal management. The time I documented below is in addition to time spent performing reported procedures but includes the following listed in this critical care notation. Medical Decision Making - Medical Records Medical records reviewed: Yes: I reviewed the patient's medical records. - Akash Inquiry Pt receiving controlled substance: No Akash was queried for this patient: No Vital Signs: 07/17/19 16:43 07/17/19 18:30 07/17/19 18:57 Temperature 99.4 F Temperature Source Oral Pulse Rate 110 H Pulse Rate [Right Radial] 64 114 H Respiratory Rate 20 20 Blood Pressure [Right Arm] 155/69 H 172/85 H Blood Pressure Mean [Right Arm] 97 114 Blood Pressure Position [Right Arm] Sitting 02 Sat by Pulse Oximetry 98 98 Oxygen Delivery Method Room Air Room Air Oxygen Flow Rate (LPM) 07/17/19 19:17 Temperature Temperature Source Pulse Rate Pulse Rate [Right Radial] 114 H Respiratory Rate 22 Blood Pressure [Right Arm] 181/78 H Blood Pressure Mean [Right Arm] 112 Blood Pressure Position [Right Arm] 02 Sat by Pulse Oximetry 98 Oxygen Delivery Method Nasal Cannula Oxygen Flow Rate (LPM) 2 - Lab Data Lab results reviewed: Yes: I reviewed the patient's lab results. Lab Results 07/17/19 16:55: Urine Color Yellow, Urine Appearance Clear, Urine pH 6.0, Ur Specific [place] 1.020, Urine Protein Trace, Urine Glucose (UA) Negative, Urine Ketones Negative, Urine Blood Negative, Urine Nitrate Negative, Urine Bilirubin Negative, Urine Urobilinogen 0.2, Ur Leukocyte Esterase Negative, Urine WBC 3-5, Ur Squamous Epith Cells Occasional, Urine Bacteria Trace 07/17/19 16:55: Influenza Type A Ag Negative, Influenza Type B Ag Negative 07/17/19 17:03: WBC 6.1, RBC 3.40 L, Hgb 9.9 L, Hct 32.4 L, MCV 95.3, MCH 29.1, MCHC 30.6 L, RDW 17.5, Plt Count 397, MPV 8.2, Neut % (Auto) 80.5 H, Lymph % ( Auto) 9.6 L, [place] % (Auto) 5.8, Eos % (Auto) 3.8, Baso % (Auto) 0.3, Neut # (Auto) 4.9, Lymph # (Auto) 0.6 L, [place] # (Auto) 0.4, Eos # (Auto) 0.2, Baso # (Auto) 0.0 07/17/19 17:03: Sodium 146 H, Potassium 3.7, Chloride 108 H, Carbon Dioxide 28, Anion Gap 13.7, BUN 29 H, Creatinine 2.40 H, Estimated Creat Clear 27, Estimated GFR 20 L, Est GFR ( Amer) 24 L, Glucose 100, Calcium 9.1, Total Bilirubin 0.7, AST 32, ALT 12, Alkaline Phosphatase 106, Troponin I 0.03, Total Protein 6.3 L, Albumin 2.9 L, Globulin 3.4 H, Albumin/Globulin Ratio 0.9 L 07/17/19 17:03: Lactate 1.2 07/17/19 17:03: B-Natriuretic Peptide 1290 H 07/17/19 17:03: Magnesium 2.1 07/17/19 17:03: Digoxin 1.51 Result diagrams: 07/17/19 17:03 07/17/19 17:03 Orders (Tests/Meds): ED MEDICATIONS Generic Name Dose Route Start Last Admin Trade Name Martin PRN Reason Stop Dose Admin Acetaminophen 650 mg 07/17/19 19:20 Acetaminophen 325mg Tab PO 08/16/19 19:19 Q4HP PRN As Needed for Fever or Pain Allopurinol 100 mg 07/18/19 09:00 Allopurinol 100mg Tablet PO 08/17/19 08:59 DAILY DANIEL Aspirin 81 mg 07/18/19 09:00 Aspirin 81mg Enteric Coated Tablet PO 08/17/19 08:59 DAILY DANIEL Bisoprolol Fumarate 10 mg 07/17/19 21:00 Zebeta 5mg Tablet PO 08/16/19 20:59 BID DANIEL Carbidopa/Levodopa 1 each 07/17/19 21:00 Carbidopa/Levodopa 25/100mg Tablet PO 08/16/19 20:59 BID [facility] Digoxin 125 mcg 07/18/19 09:00 Digoxin 0.125mg Tablet PO 08/17/19 08:59 DAILY [facility] Diltiazem HCl 180 mg 07/17/19 21:00 Cardizem 180mg Er Capsule PO 08/16/19 20:59 BID [facility] Diphenhydramine HCl 25 mg 07/17/19 19:23 Benadryl 25mg Capsule PO 08/16/19 19:22 Q6HP PRN Rash/itching Famotidine 20 mg 07/17/19 21:00 Pepcid 20mg/2ml Vial IV 08/16/19 20:59 BID [facility] Non-Formulary Medication 50,000 unit 07/17/19 19:30 Cholecalciferol (Vitamin D3) [Replesta] PO 08/16/19 19:29 WEEKLY [facility] Non-Formulary Medication 145 mg 07/18/19 09:00 Fenofibrate Nanocrystallized [Tricor] PO 08/17/19 08:59 DAILY [facility] Non-Formulary Medication 65 mg 07/17/19 21:00 Ferrous Gluconate [Iron] PO 08/16/19 20:59 BID [facility] Non-Formulary Medication 50 mg 07/18/19 09:00 Losartan Potassium [Cozaar 50mg Tablets] PO 08/17/19 08:59 DAILY [facility] Non-Formulary Medication 25 mg 07/18/19 09:00 Sertraline Hcl [Zoloft] PO 08/17/19 08:59 DAILY [facility] Non-Formulary Medication 50 mg 07/18/19 09:00 Sitagliptin Phosphate [Januvia 100mg Tablet] PO 08/17/19 08:59 DAILY [facility] Ondansetron HCl 4 mg 07/17/19 19:20 Zofran 4mg/2ml Vial IV 08/16/19 19:19 Q8HP PRN Nausea Sodium Chloride 8 ml 07/17/19 19:23 Sodium Chloride 0.9% 10ml Vial IV 08/16/19 19:22 NEEDED PRN dilute pepcid Discontinued Medications Generic Name Dose Route Start Last Admin Trade Name Freq PRN Reason Stop Dose Admin Albuterol/Ipratropium 3 ml 07/17/19 16:48 07/17/19 18:30 Duoneb 3ml Neb IH 07/17/19 16:49 3 ml ONCE ONE Administration Furosemide 40 mg 07/17/19 19:06 07/17/19 19:12 Lasix 40mg/4ml Vial IV 07/17/19 19:07 40 mg ONCE ONE Administration Sodium Chloride 1,000 mls @ 999 mls/hr 07/17/19 17:00 07/17/19 17:00 Sod Chlor 0.9% 1000ml Bag IV 07/17/19 18:00 Not Given .Q1H1M DANIEL Methylprednisolone Sodium Succinate 125 mg 07/17/19 16:48 07/17/19 17:00 Solu-Medrol 125mg/2ml Vial IV 07/17/19 16:49 125 mg ONCE ONE Administration ORDERS Category Date Time Status Basic Metabolic Panel AMLAB Lab 07/18/19 06:00 Ordered Complete Blood Count Auto Diff AMLAB Lab 07/18/19 06:00 Ordered Troponin I Q3H Lab 07/17/19 20:00 Ordered Troponin I Q3H Lab 07/17/19 23:00 Ordered Blood Culture Stat Micro 07/17/19 17:03 Received - Radiology Data #1 Image(s): Chest Image Reviewed: Yes I reviewed the patient's radiology results [address] [facility] [address] [place] [address] XRay Report Signed Patient: Kellie Dixon MR#: [id number] : 1940 Acct:[id number] Age/Sex: 79 / F ADM Date: 07/14/19 Loc: RAD Attending Dr: Carolyn Michel MD Ordering Physician: Carolyn Michel MD Date of Service: 07/14/19 Procedure(s): XR chest 2V Accession Number(s): [id number] cc: Carolyn Michel MD; Reza Gautam MD~ PROCEDURE: XR CHEST 2V CLINICAL HISTORY: PNEUMONIA COMPARISON: CXR2V XR chest 2V from 11/14/2017 XR CHEST PORTABLE from 06/26/2019 XR CHEST 2V from 06/30/2019 FINDINGS: There is cardiomegaly with an atherosclerotic aorta without active CHF. There are new bilateral pleural effusions and there is some consolidation of both lung bases. Atelectasis and/or infiltrate would have to be considered. A few scattered small hyperdense pulmonary nodules are seen bilaterally likely stable granulomas. No acute bony abnormalities. IMPRESSION: New bilateral pleural effusions with some consolidation of the adjacent lung bases. Mild infiltrate and/or atelectasis should be considered. Dictated by: Reza Gautam 07/14/2019 15:34 Electronically signed by Reza Gautam in [facility] 07/14/2019 15:34 - ECG Data Tracing #1 I reviewed this ECG and interpreted as documented below: (EKG at 1653 shows atrial fibrillation at 71 bpm, ST and T wave changes (consider inferolateral ischemia or digitalis effect).) Medical Decision Narrative: 16:56 patient evaluated. EKG, chest x-ray, screening labs, blood cultures ordered. DuoNeb ordered. Aguilera catheter ordered for accurate urine output. 19:03 I have discussed this patient's case with Dr. Carlson who is covering for her PCP Dr. Michel. He has agreed to admit this patient. Will be admitted to observation. In summary, patient's labs all are pretty much unremarkable except for her elevated BNP. Her troponin was slightly elevated at 0.03. It was 0.042 weeks ago and she does have chronic kidney disease. Patient's chest x-ray does show bilateral pleural effusions and radiology believes her left-sided effusion is slightly improved from her prior chest x-ray. I have ordered Lasix 40 mg IV push. We will maintain the patient's Aguilera catheter for accurate urine output. I discussed results of work-up, diagnosis and care plan with patient and family. They understand, agree and patient will now be admitted. General Adult HPI - General Chief complaint: Weakness Stated complaint: weakness Time Seen by Provider: 07/17/19 16:43 Mode of Arrival: EMS Source of Information: Patient, Spouse Limitations: No Limitations Description of Symptoms (Recalled from ER Triage Doc. by RN): pt presents to ed with c/o generalized weakness. pt states she was diagnosed and treated for pna here at [facility] recently and that she has continued to decline since. - History of Present Illness HPI narrative: Patient is here in the emergency room from home with by EMS for evaluation complaining of having generalized weakness. Patient has had increasing weakness since Sunday this week. Patient was recently admitted to the hospital here for pneumonia a few weeks ago. She was discharged to home and was doing okay. Patient now has been unable to transfer herself from bed to her [facility] chair for the past 2 days. She has had a decent appetite. She denies having chest pain. She does have some shortness of breath. She apparently had a repeat chest x-ray on Sunday and saw her PCP that day. He started her on Lasix and also Zithromax. Patient is developed a red rash over the past 2 days since starting the Zithromax. Patient also has a mild increase in bilateral lower leg and ankle edema. - Related Data Home Medications Medication Instructions Recorded Confirmed allopurinol 100 mg tablet 100 mg PO DAILY 06/16/19 07/17/19 apixaban 5 mg tablet 5 mg PO BID 06/16/19 07/17/19 aspirin 81 mg tablet,delayed 81 mg PO DAILY 06/16/19 07/17/19 release cholecalciferol (vitamin D3) 50,000 unit PO WEEKLY 06/16/19 07/17/19 50,000 unit oral wafer digoxin 125 mcg (0.125 mg) tablet 125 mcg PO DAILY 06/16/19 07/17/19 fenofibrate nanocrystallized 145 145 mg PO DAILY 06/16/19 07/17/19 mg tablet losartan 50 mg tablet 50 mg PO DAILY 06/16/19 07/17/19 sertraline 25 mg tablet 25 mg PO DAILY 06/16/19 07/17/19 Azithromycin 500 mg PO DIRECTED 07/17/19 07/17/19 Carbidopa/Levodopa 1 each PO BID 07/17/19 07/17/19 [Carbidopa/Levodopa 25/100mg Tablet] Ferrous Gluconate [Iron] 65 mg PO BID 07/17/19 07/17/19 Furosemide [Furosemide 40MG tAB] 40 mg PO DAILY 07/17/19 07/17/19 Sitagliptin Phosphate [Januvia 50 mg PO DAILY 07/17/19 07/17/19 100mg tablet] bisoproloL fumarate [Zebeta 5mg 10 mg PO BID 07/17/19 07/17/19 tablet] dilTIAZem HCL [Cardizem 180mg ER 180 mg PO BID 07/17/19 07/17/19 capsule] Allergies Allergy/AdvReac Type Severity Reaction Status Date / Time No Known Allergies Allergy Verified 07/17/19 16:47 [facility] History - Hepatitis A Screen Drug use history?: No High risk sexual behaviors?: No History of sexually transmitted infection?: No Currently employed?: No Childcare worker?: No Do you have indoor plumbing?: Yes Do you have electricity?: Yes Attestation statement:: This patient has been screened for Hepatitis A risk factors. Medical History: Reports:: Atrial Fibrillation (flutter), Diabetes Mellitus Type 2, Hyperlipidemia, Hypertension, Renal Insufficiency Other Medical History: Reports: Arthritis Laterality Cases: Right: Carotid Endarterectomy Other Surgeries: Yes: - Social History Smoking Status: Former smoker Tobacco Type: cigarettes # Packs/Day (cigarettes): 2 Alcohol Intake: never Occupational Status: retired Housing: house Household Members: spouse Family Hx:: Other (CHF, Renal Failure) ROS Obtained: Yes All systems reviewed & no additional complaints - Constitutional Constitutional: Reports system reviewed and no additional complaints, except as docu, Denies chills, Reports fatigue, Denies fever(s), Reports weakness (Generalized) - Eyes Eyes: Reports as per HPI - ENT Ears, Nose, Mouth, and Throat: Reports system reviewed and no additional complaints, except as docu - Cardiovascular Cardiovascular: Reports system reviewed and no additional complaints, except as docu, Reports as per HPI, Denies chest pain, Denies diaphoresis, Reports dyspnea - Respiratory Respiratory: Yes system reviewed and no additional complaints, except as docu, Yes as per HPI, Yes dyspnea, Yes dyspnea on exertion - Gastrointestinal Gastrointestingal: Reports: system reviewed and no additional complaints, except as docu - Genitourinary Female Genitourinary: Reports system reviewed and no additional complaints, except as docu - Musculoskeletal Musculoskeletal: Reports system reviewed and no additional complaints, except as docu - Integumentary/Breasts Skin/Breast: Reports system reviewed and no additional complaints, except as docu, Reports as per HPI, Reports rash (Red rash has developed over the past 2 days on torso) - Neurologic Neurologic: Reports system reviewed and no additional complaints, except as docu, Reports as per HPI, Denies abnormal speech, Denies dizziness, Denies focal weakness, Denies frequent falls, Denies headache(s), Reports weakness (Generalized) - Endocrine Endocrine: Reports system reviewed and no additional complaints, except as docu - Hematologic/Lymphatic Henatologic/Lymphatic: Reports system reviewed and no additional complaints, except as docu - Allergic/Immunologic Allergic/Immunologic: Reports system reviewed and no additional complaints, except as docu Physical Exam - General General appearance: alert, in no apparent distress, obese - Head Head exam: atraumatic, normocephalic, normal inspection - Eye Eye exam: Present: normal appearance, PERRL, EOMI - ENT ENT exam: Present: mucous membranes moist, other (No discharge from ears or nares.) - Neck Neck exam: Present: trachea midline - Chest Chest inspection: Present: normal inspection, symmetric chest wall rise - Respiratory Respiratory exam: Present: other (Equally diminished breath sounds bilaterally. No rales rhonchi or wheezing noted.) - Cardiovascular Cardiovascular exam: Present: regular rate, normal heart sounds (Distant heart sounds) - Abdominal Exam Abdominal exam: Present: soft, normal bowel sounds. Absent: distention, tendern ess, guarding, rebound, rigidity - Extremities Exam Extremities exam: Present: full ROM, other (Mild nonpitting edema to bilateral lower legs and ankles. Generalized motor weakness.). Absent: calf tenderness - Neurological Exam Neurological exam: Present: alert, oriented X3, CN II-XII intact. Absent: motor sensory deficit - Psychiatric Psychiatric exam: Present: normal mood, flat affect - Skin Skin exam: Present: warm, dry, intact, rash (Patient is noted to have a diffuse, blanchable and erythematous macular rash to her anterior and posterior torso.)
[2019-07-17 17:04] LABS: Microscopic, Urine URINE MICROSCOPIC (MICROSCOPIC)
[2019-07-17 17:15] LABS: Appearance,Urine CLEAR (Clear); Bilirubin,Urine Negative (Negative); Blood, Urine Negative (Negative); Color,Urine YELLOW (Yellow); Glucose,Urine (UA) Negative (Negative); Ketones,Urine Negative (Negative); Leukocyte Esterase,Urine Negative (Negative); Protein,Urine TRACE (Negative); Urobilinogen,Urine 0.2 EU/dl (0.2)
[2019-07-17 17:20] LABS: Basophils % 0.3 % (0.1-2.0); Eosinophils # 0.2 K/mm3 (0.0-0.4); Eosinophils % 3.8 % (0.1-12.0); Hematocrit 32.4 % (37.0-47.0); Hemoglobin 9.9 g/dL (12.2-16.2); Lymphocytes # 0.6 K/mm3 (0.7-4.5); Lymphocytes % 9.6 % (10-50); Mean Corpuscular HGB Conc 30.6 g/dL (31.8-35.4); Mean Corpuscular Volume 95.3 fl (81-99); Mean Platelet Volume 8.2 fl (7.4-10.4); Monocytes # 0.4 K/mm3 (0.1-1.0); Monocytes % 5.8 % (1.7-9.3); Neutrophils # 4.9 K/mm3 (1.8-7.8); Neutrophils % 80.5 % (37.0-80.0); Platelet Count 397 K/mm3 (142-424); Red Cell Distribution Width 17.5 % (11.5-17.5); White Blood Count 6.1 K/mm3 (4.8-10.8)
[2019-07-17 17:25] LABS: Bacteria,Urine Trace /lpf; Squamous Epithelial Cell,Urine Occasional #/hpf (0-5)
[2019-07-17 17:28] LABS: Albumin Level 2.9 gm/dL (3.4-5.0); Albumin/Globulin Ratio 0.9 (1.1-1.8); Anion Gap 13.7 mEq/L (5-15); Bilirubin,Total 0.7 mg/dL (0.2-1.0); Calcium 9.1 mg/dL (8.5-10.1); Globulin 3.4 gm/dl (1.3-3.2); Total Protein,Serum 6.3 gm/dL (6.4-8.2)
[2019-07-18 06:24] LABS: Basophils % 0.4 % (0.1-2.0); Eosinophils % 0.1 % (0.1-12.0); Hemoglobin 9.1 g/dL (12.2-16.2); Lymphocytes # 0.4 K/mm3 (0.7-4.5); Mean Corpuscular HGB Conc 29.4 g/dL (31.8-35.4); Mean Corpuscular Volume 97.1 fl (81-99); Mean Platelet Volume 8.1 fl (7.4-10.4); Monocytes # 0.1 K/mm3 (0.1-1.0); Neutrophils % 85.7 % (37.0-80.0); Platelet Count 359 K/mm3 (142-424); Red Blood Count 3.19 M/mm3 (4.20-5.40); Red Cell Distribution Width 17.4 % (11.5-17.5); White Blood Count 3.5 K/mm3 (4.8-10.8)
[2019-07-18 06:28] LABS: Anion Gap 13.4 mEq/L (5-15); Calcium 8.5 mg/dL (8.5-10.1)
--- NOTE | 2019-07-18 07:11 | Pharmacy Consult Notes ---
[facility] Pharmacy VTE Monitoring - Patient Demographics Admission date: 07/17/19 Report Date: 07/18/19 Time: 07:10 Allergies/Adverse Reactions: Patient Allergies No Known Allergies Allergy (Verified 07/17/19 16:47) Height: 1.68 m Weight: 90.974 kg Patient Problems: Current Active Problems Morbid obesity (Chronic) Debility (Chronic) Bilateral pleural effusion (Acute) Generalized weakness (Acute) Chronic atrial fibrillation (Acute) Elevated brain natriuretic peptide (BNP) level (Acute) Peripheral edema (Acute) - VTE Risk Labs: VTE Related Lab Results Hgb 9.1 g/dL (12.2-16.2) L 07/18/19 05:45 Hct 31.0 % (37.0-47.0) L 07/18/19 05:45 Plt Count 359 K/mm3 (142-424) 07/18/19 05:45 BUN 28 mg/dL (7-18) H 07/18/19 05:45 Creatinine 2.24 mg/dL (0.55-1.02) H 07/18/19 05:45 Estimated Creat Clear 30 mL/min (50-200) 07/18/19 05:45 Was VTE Risk Assessment Performed: No VTE Score: 7 VTE Risk Level: Moderate Risk - Prophylaxis VTE Prophylaxis Ordered?: Yes Types of VTE Prophylaxis: TEDS Knee High Location of Applied Device: Bilateral Lower Extremeties
--- NOTE | 2019-07-18 08:14 | History & Physical Report ---
*Admission Date: 07/17/19 *Chief complaint: weakness *History of present illness: Ms. Dixon is a 79-year-old female who was recently admitted to [facility] for pneumonia a few weeks ago. She went home and was doing well until the past few days when she became very weak. She states her legs would just give out and she was unable to transfer herself from her bed to her Hoveround chair. She had some shortness of breath as well but no cough. She was eating well at home. She was seen in the office of [facility] on Sunday and had a chest x-ray and was started on Lasix and Zithromax. She did develop a red rash after starting the Zithromax and had an increase in her bilateral lower leg and ankle edema. She states the swelling is better today. She was brought to the emergency room for evaluation and was admitted. [facility] History I have reviewed the patient's past medical history: Yes Medical History: Reports:: Atrial Fibrillation (flutter), Congestive Heart Failure, Diabetes Mellitus Type 2, Hyperlipidemia, Hypertension, Renal Insufficiency *Have you ever received a pneumonia vaccine?: No *Have you received a flu vaccine this season?: No Other Medical History: Reports: Arthritis, Cataracts Laterality Cases: Left: Total Knee Replacement, Right: Carotid Endarterectomy Other Surgeries: Yes: - *Social History Educational Level: Completed High School Smoking Status: Former smoker Tobacco Type: cigarettes # Packs/Day (cigarettes): 3 #Yrs smoked (if former smoker): 23 Alcohol Intake: never *Occupational Status:: retired Housing: house Household Members: spouse *Travel in the last 8 weeks: None Family Hx:: Other (CHF, Renal Failure) Review of Systems - Constitutional Reports weakness, Denies body ache(s), Denies chills, Denies fever(s) - Eyes Denies blurry vision, Denies double vision - ENT Denies nasal congestion, Denies sore throat - *Cardiovascular Reports shortness of breath, Reports leg swelling, Denies chest pain, Denies rapid, pounding, or irregular heartbeat - *Respiratory Reports shortness of breath, Denies cough - *Gastrointestinal Denies abdominal pain, Denies loose stools, Denies nausea, Denies vomiting - *Genitourinary Denies difficulty urinating, Denies painful urination - *Musculoskeletal Reports joint pain (legs) - *Neurologic Reports weakness (Generalized), Denies abnormal speech, Denies dizziness, Denies localized weakness, Denies frequent falls, Denies headache(s), Denies dizziness Meds Home Medications Medication Instructions Recorded Confirmed Type allopurinol 100 mg tablet 100 mg PO DAILY 06/16/19 07/17/19 History aspirin 81 mg tablet,delayed 81 mg PO DAILY 06/16/19 07/17/19 History release cholecalciferol (vitamin D3) 50,000 unit PO WEEKLY 06/16/19 07/17/19 History 50,000 unit oral wafer digoxin 125 mcg (0.125 mg) tablet 125 mcg PO DAILY 06/16/19 07/17/19 History fenofibrate nanocrystallized 145 145 mg PO DAILY 06/16/19 07/17/19 History mg tablet losartan 50 mg tablet 50 mg PO DAILY 06/16/19 07/17/19 History sertraline 25 mg tablet 25 mg PO DAILY 06/16/19 07/17/19 History Carbidopa/Levodopa 1 each PO BID 07/17/19 07/17/19 History [Carbidopa/Levodopa 25/100mg Tablet] Ferrous Gluconate [Iron] 65 mg PO BID 07/17/19 07/17/19 History Furosemide [Furosemide 40MG tAB] 40 mg PO DAILY 07/17/19 07/17/19 History Sitagliptin Phosphate [Januvia 50 mg PO DAILY 07/17/19 07/17/19 History 100mg tablet] bisoproloL fumarate [Zebeta 5mg 10 mg PO BID 07/17/19 07/17/19 History tablet] dilTIAZem HCL [Cardizem 180mg ER 180 mg PO BID 07/17/19 07/17/19 History capsule] Allergies Allergy/AdvReac Type Severity Reaction Status Date / Time No Known Allergies Allergy Verified 07/17/19 16:47 Exam Vital signs and Labs for Last 24 Hours: Temp Pulse Resp BP Pulse Ox 97.6 F 108 H 20 130/76 95 07/18/19 04:00 07/18/19 04:00 07/18/19 04:00 07/18/19 04:00 07/18/19 04:00 Laboratory Results - last 24 hr 07/17/19 16:55: Urine Color Yellow, Urine Appearance Clear, Urine pH 6.0, Ur Specific [place] 1.020, Urine Protein Trace, Urine Glucose (UA) Negative, Urine Ketones Negative, Urine Blood Negative, Urine Nitrate Negative, Urine Bilirubin Negative, Urine Urobilinogen 0.2, Ur Leukocyte Esterase Negative, Urine WBC 3-5, Ur Squamous Epith Cells Occasional, Urine Bacteria Trace 07/17/19 16:55: Influenza Type A Ag Negative, Influenza Type B Ag Negative 07/17/19 17:03: WBC 6.1, RBC 3.40 L, Hgb 9.9 L, Hct 32.4 L, MCV 95.3, MCH 29.1, MCHC 30.6 L, RDW 17.5, Plt Count 397, MPV 8.2, Neut % (Auto) 80.5 H, Lymph % (Auto) 9.6 L, [place] % (Auto) 5.8, Eos % (Auto) 3.8, Baso % (Auto) 0.3, Neut # (Auto) 4.9, Lymph # (Auto) 0.6 L, [place] # (Auto) 0.4, Eos # (Auto) 0.2, Baso # (Auto) 0.0 07/17/19 17:03: Sodium 146 H, Potassium 3.7, Chloride 108 H, Carbon Dioxide 28, Anion Gap 13.7, BUN 29 H, Creatinine 2.40 H, Estimated Creat Clear 27, Estimated GFR 20 L, Est GFR ( Amer) 24 L, Glucose 100, Calcium 9.1, Total Bilirubin 0.7, AST 32, ALT 12, Alkaline Phosphatase 106, Troponin I 0.03, Total Protein 6.3 L, Albumin 2.9 L, Globulin 3.4 H, Albumin/Globulin Ratio 0.9 L 07/17/19 17:03: Lactate 1.2 07/17/19 17:03: B-Natriuretic Peptide 1290 H 07/17/19 17:03: Magnesium 2.1 07/17/19 17:03: Digoxin 1.51 07/17/19 19:55: Troponin I < 0.02 07/17/19 22:29: Troponin I < 0.02 07/18/19 05:45: WBC 3.5 L D, RBC 3.19 L, Hgb 9.1 L, Hct 31.0 L, MCV 97.1, MCH 28.6, MCHC 29.4 L, RDW 17.4, Plt Count 359, MPV 8.1, Neut % (Auto) 85.7 H, Lymph % (Auto) 12.0, [place] % (Auto) 2.0, Eos % (Auto) 0.1, Baso % (Auto) 0.4, Neut # (Auto) 3.0, Lymph # (Auto) 0.4 L, [place] # (Auto) 0.1, Eos # (Auto) 0.0, Baso # (Auto) 0.0 07/18/19 05:45: Sodium 145, Potassium 3.4 L, Chloride 107, Carbon Dioxide 28, Anion Gap 13.4, BUN 28 H, Creatinine 2.24 H, Estimated Creat Clear 30, Estimated GFR 21 L, Est GFR ( Amer) 26 L, Glucose 179 H D, Calcium 8.5 07/18/19 06:21: POC Glucose 174 H I & O for Last 24 hours: Intake & Output 07/15/19 07/16/19 07/17/19 07/18/19 11:59 11:59 11:59 11:59 Output Total 2150 / 215 Balance -2150 / -2150 Weight 200 lb 9 oz - Constitutional no acute distress - *Routine HEENT Exam Head: Present: normocephalic Eye: Present: EOMI, PERRL ENT: Present: mucous membranes moist - *Routine Neck Exam Present: supple. Absent: lymphadenopathy - *Routine Respiratory Exam Present: decreased breath sounds, CTA bilaterally - *Routine Cardiovascular Exam Present: irregularly irregular - *Routine Abdominal Exam Present: soft, normoactive bowel sounds. Absent: tenderness - *Routine Extremities Exam Present: edema (1+ bilateral LE edema). Absent: cyanosis, clubbing - *Routine Skin Exam Present: warm. Absent: rash - *Routine Neurological Exam Present: alert, oriented X3 H&P: Result - Impressions CXR - Slight interval improvement with decrease in left pleural effusion. No change in right pleural effusion Assessment and Plan (1) Bilateral pleural effusion Current visit: Yes Status: Acute Category: Medical Code(s): J90 - Pleural effusion, not elsewhere classified (2) Chronic atrial fibrillation Current visit: Yes Status: Acute Category: Medical Code(s): I48.20 - Chronic atrial fibrillation, unspecified (3) Elevated brain natriuretic peptide (BNP) level Current visit: Yes Status: Acute Category: Medical Code(s): R79.89 - Other specified abnormal findings of blood chemistry (4) Generalized weakness Current visit: Yes Status: Acute Category: Medical Code(s): R53.1 - Weakness (5) Debility Current visit: Yes Status: Chronic Category: Medical Code(s): R53.81 - Other malaise (6) Morbid obesity Current visit: Yes Status: Chronic Category: Medical Code(s): E66.01 - Morbid (severe) obesity due to excess calories (7) CKD (chronic kidney disease), stage IV Current visit: No Status: Chronic Category: Medical Code(s): N18.4 - Chronic kidney disease, stage 4 (severe) (8) Hyperlipidemia Current visit: No Status: Chronic Category: Medical Code(s): E78.5 - Hyperlipidemia, unspecified (9) Hypertension Current visit: No Status: Chronic Category: Medical Code(s): I10 - Essential (primary) hypertension - Assessment and plan all Dx Assessment and Plan for all problems:: We will get a physical therapy consult today as patient's main complaint is leg weakness.
[2019-07-18 10:03] LABS: Lymphocytes % 14 % (10-50); Monocytes % 3 % (2-9); Neutrophils % 83 % (42-76); Total Cells Counted 100
[2019-07-18 10:04] LABS: Hypochromasia 1+
--- NOTE | 2019-07-19 09:24 | Progress Note ---
Internal Medicine - PN: Subj *Date: 07/19/19 *Time: 09:21 Interval history: She had a mental status change last night. She was refusing medications. Her was called in. He has been here through the night with her. She has rested okay through the night. She is conversant this morning. Exam Vital signs and Labs for Last 24 Hours: Temp Pulse Resp BP Pulse Ox 97.7 F 78 16 133/85 98 07/19/19 08:00 07/19/19 08:00 07/19/19 08:00 07/19/19 08:00 07/19/19 08:00 Laboratory Results - last 24 hr 07/18/19 05:45: Total Counted 100, Neutrophils % (Manual) 83 H, Lymphocytes % (Manual) 14, Monocytes % (Manual) 3, Platelet Estimate Normal, Hypochromasia 1+ 07/19/19 00:52: POC Glucose 163 H I & O for Last 24 hours: Intake & Output 07/16/19 07/17/19 07/18/19 07/19/19 11:59 11:59 11:59 11:59 Intake Total 480 / 480 1110 / 1110 Output Total 2150 / 2150 2125 / 2125 Balance -1670 / -1670 -1015 / -1015 Weight 200 lb 9 oz - Constitutional no acute distress - *Routine HEENT Exam Head: Present: normocephalic Eye: Present: PERRL ENT: Present: mucous membranes dry - *Routine Respiratory Exam Present: CTA bilaterally - *Routine Cardiovascular Exam Present: irregular rhythm - *Routine Abdominal Exam Present: soft, obese - *Routine Extremities Exam Present: edema (Perhaps 1+.) - *Routine Skin Exam Present: rash (Mild maculopapular rash of the chest and neck. This seems to be improving.) Assessment and Plan (1) Bilateral pleural effusion Current visit: Yes Status: Acute Category: Medical Code(s): J90 - Pleural effusion, not elsewhere classified (2) Chronic atrial fibrillation Current visit: Yes Status: Acute Category: Medical Code(s): I48.20 - Chronic atrial fibrillation, unspecified (3) Elevated brain natriuretic peptide (BNP) level Current visit: Yes Status: Acute Category: Medical Code(s): R79.89 - Other specified abnormal findings of blood chemistry (4) Generalized weakness Current visit: Yes Status: Acute Category: Medical Code(s): R53.1 - Weakness (5) Debility Current visit: Yes Status: Chronic Category: Medical Code(s): R53.81 - Other malaise (6) Morbid obesity Current visit: Yes Status: Chronic Category: Medical Code(s): E66.01 - Morbid (severe) obesity due to excess calories (7) CKD (chronic kidney disease), stage IV Current visit: No Status: Chronic Category: Medical Code(s): N18.4 - Chronic kidney disease, stage 4 (severe) (8) Hyperlipidemia Current visit: No Status: Chronic Category: Medical Code(s): E78.5 - Hyperlipidemia, unspecified (9) Hypertension Current visit: No Status: Chronic Category: Medical Code(s): I10 - Essential (primary) hypertension (10) Change in mental status Current visit: Yes Status: Acute Category: Medical Code(s): R41.82 - Altered mental status, unspecified - Assessment and plan all Dx Assessment and Plan for all problems:: Check labs. She needs to be up in the chair today.
[2019-07-19 13:28] LABS: Basophils % 0.5 % (0.1-2.0); Eosinophils # 0.2 K/mm3 (0.0-0.4); Eosinophils % 2.9 % (0.1-12.0); Hematocrit 34.2 % (37.0-47.0); Hemoglobin 10.7 g/dL (12.2-16.2); Lymphocytes # 0.8 K/mm3 (0.7-4.5); Mean Corpuscular HGB Conc 31.4 g/dL (31.8-35.4); Mean Corpuscular Volume 94.7 fl (81-99); Mean Platelet Volume 9.7 fl (7.4-10.4); Monocytes # 0.5 K/mm3 (0.1-1.0); Monocytes % 8.6 % (1.7-9.3); Neutrophils % 74.1 % (37.0-80.0); Platelet Count 426 K/mm3 (142-424); Red Blood Count 3.61 M/mm3 (4.20-5.40); Red Cell Distribution Width 17.2 % (11.5-17.5); White Blood Count 5.4 K/mm3 (4.8-10.8)
[2019-07-19 14:51] LABS: Anion Gap 15.8 mEq/L (5-15); Calcium 9.1 mg/dL (8.5-10.1)
--- NOTE | 2019-07-19 19:10 | Electrocardiograph Report ---
APPROVED REPORT Exam: Resting ECG HR:71 bpm ECG Measurements Heart Rate 71 AXES QRSd 90 QRS -5 QT 328 T179 QTc 356 <Conclusion> Atrial fibrillation with a competing junctional pacemaker ST & T wave abnormality, consider inferolateral ischemia or digitalis effect Abnormal ECG Electronically signed by : Oj Mccarthy, 07/19/2019 19:09:36
[2019-07-20 06:14] LABS: Basophils # 0.1 K/mm3 (0-0.2); Basophils % 0.9 % (0.1-2.0); Eosinophils # 0.3 K/mm3 (0.0-0.4); Hematocrit 31.6 % (37.0-47.0); Hemoglobin 9.7 g/dL (12.2-16.2); Lymphocytes # 1.1 K/mm3 (0.7-4.5); Lymphocytes % 21.7 % (10-50); Mean Corpuscular HGB Conc 30.9 g/dL (31.8-35.4); Mean Corpuscular Volume 93.7 fl (81-99); Monocytes # 0.5 K/mm3 (0.1-1.0); Monocytes % 9.4 % (1.7-9.3); Neutrophils # 3.1 K/mm3 (1.8-7.8); Platelet Count 389 K/mm3 (142-424); Red Blood Count 3.37 M/mm3 (4.20-5.40); Red Cell Distribution Width 17.2 % (11.5-17.5)
[2019-07-20 06:25] LABS: Calcium 8.9 mg/dL (8.5-10.1)
--- NOTE | 2019-07-20 11:06 | Progress Note ---
Internal Medicine - PN: Subj *Date: 07/20/19 *Time: 11:03 Interval history: She did have a quiet night last night. Her mentation is not normal according to her family but she is calm her this morning. There have been multiple changes in her medications including discontinuation of Sinemet and allopurinol. Note the labs that I have highlighted. Exam Vital signs and Labs for Last 24 Hours: Temp Pulse Resp BP Pulse Ox 100.1 F H 113 H 22 180/92 H 92 L 07/20/19 08:00 07/20/19 08:00 07/20/19 08:00 07/20/19 08:00 07/20/19 08:00 Laboratory Results - last 24 hr 07/19/19 13:10: WBC 5.4 D, RBC 3.61 L, Hgb 10.7 L, Hct 34.2 L, MCV 94.7, MCH 29.7, MCHC 31.4 L, RDW 17.2, Plt Count 426 H, MPV 9.7, Neut % (Auto) 74.1, Lymph % (Auto) 14.0, [place] % (Auto) 8.6, Eos % (Auto) 2.9, Baso % (Auto) 0.5, Neut # (Auto) 4.0, Lymph # (Auto) 0.8, [place] # (Auto) 0.5, Eos # (Auto) 0.2, Baso # (Aut o) 0.0 07/19/19 13:10: Sodium 141, Potassium 4.8 D, Chloride 105, Carbon Dioxide 25, Anion Gap 15.8 H, BUN 49 H D, Creatinine 2.69 H D, Estimated Creat Clear 25, Estimated GFR 17 L*, Est GFR ( Amer) 21 L, Glucose 121 H, Calcium 9.1 07/20/19 06:00: WBC 5.0, RBC 3.37 L, Hgb 9.7 L, Hct 31.6 L, MCV 93.7, MCH 28.9, MCHC 30.9 L, RDW 17.2, Plt Count 389, MPV 8.0, Neut % (Auto) 63.0, Lymph % (Auto) 21.7, [place] % (Auto) 9.4 H, Eos % (Auto) 5.0, Baso % (Auto) 0.9, Neut # (Auto) 3.1, Lymph # (Auto) 1.1, [place] # (Auto) 0.5, Eos # (Auto) 0.3, Baso # (Auto) 0.1 07/20/19 06:00: Sodium 144, Potassium 4.0, Chloride 103, Carbon Dioxide 32 D, Anion Gap 13.0, BUN 47 H, Creatinine 2.48 H, Estimated Creat Clear 27, Estimated GFR 19 L*, Est GFR ( Amer) 23 L, Glucose 84 D, Calcium 8.9 I & O for Last 24 hours: Intake & Output 07/17/19 07/18/19 07/19/19 07/20/19 11:59 11:59 11:59 11:59 Intake Total 480 / 480 1110 / 1110 840 / 840 Output Total 2150 / 2150 2125 / 2125 4200 / 4200 Balance -1670 / -1670 -1015 / -1015 -3360 / -3360 Weight 200 lb 9 oz 198 lb 8 oz Microbiology Reports for the Last 24 Hours: Microbiology 07/17/19 17:03 Blood Blood Culture - Preliminary NO GROWTH AFTER 48 HOURS 07/17/19 17:03 Blood Blood Culture - Preliminary NO GROWTH AFTER 48 HOURS - Constitutional no acute distress - *Routine Respiratory Exam Present: CTA bilaterally. Absent: respiratory distress - *Routine Cardiovascular Exam Present: irregular rhythm (100) - *Routine Abdominal Exam Present: soft. Absent: tenderness - *Routine Extremities Exam Present: edema (1+ , less than usual.) - *Routine Neurological Exam Absent: alert (But awake and responsive. Family present.) Assessment and Plan (1) Bilateral pleural effusion Current visit: Yes Status: Acute Category: Medical Code(s): J90 - Pleural effusion, not elsewhere classified (2) Chronic atrial fibrillation Current visit: Yes Status: Acute Category: Medical Code(s): I48.20 - Chronic atrial fibrillation, unspecified (3) Elevated brain natriuretic peptide (BNP) level Current visit: Yes Status: Acute Category: Medical Code(s): R79.89 - Other specified abnormal findings of blood chemistry (4) Generalized weakness Current visit: Yes Status: Acute Category: Medical Code(s): R53.1 - Weakness (5) Debility Current visit: Yes Status: Chronic Category: Medical Code(s): R53.81 - Other malaise (6) Morbid obesity Current visit: Yes Status: Chronic Category: Medical Code(s): E66.01 - Morbid (severe) obesity due to excess calories (7) CKD (chronic kidney disease), stage IV Current visit: No Status: Chronic Category: Medical Code(s): N18.4 - Chronic kidney disease, stage 4 (severe) (8) Hyperlipidemia Current visit: No Status: Chronic Category: Medical Code(s): E78.5 - Hyperlipidemia, unspecified (9) Hypertension Current visit: No Status: Chronic Category: Medical Code(s): I10 - Essential (primary) hypertension (10) Change in mental status Current visit: Yes Status: Acute Category: Medical Code(s): R41.82 - Altered mental status, unspecified - Assessment and plan all Dx Assessment and Plan for all problems:: Continue present regimen. Discussed disposition with and daughter.
[2019-07-21 06:22] LABS: Anion Gap 10.5 mEq/L (5-15); Calcium 8.6 mg/dL (8.5-10.1)
--- NOTE | 2019-07-21 09:05 | Progress Note ---
Internal Medicine - PN: Subj *Date: 07/21/19 *Time: 09:01 Interval history: Patient denies chest pain and shortness of breath. She is eating without difficulty. She says everything is fine which is her answer to all questions. She still has her Aguilera catheter. Bowels moved yesterday. is at bedside. Exam Vital signs and Labs for Last 24 Hours: Temp Pulse Resp BP Pulse Ox 97.6 F 96 H 20 192/106 H 92 L 07/21/19 08:00 07/21/19 08:57 07/21/19 08:00 07/21/19 08:00 07/21/19 08:00 Laboratory Results - last 24 hr 07/21/19 05:40: Sodium 142, Potassium 3.5, Chloride 102, Carbon Dioxide 33 H, Anion Gap 10.5, BUN 44 H, Creatinine 2.32 H, Estimated Creat Clear 28, Estimated GFR 20 L, Est GFR ( Amer) 25 L, Glucose 92, Calcium 8.6 07/21/19 05:57: POC Glucose 91 I & O for Last 24 hours: Intake & Output 07/18/19 07/19/19 07/20/19 07/21/19 11:59 11:59 11:59 11:59 Intake Total 480 / 480 1110 / 1110 840 / 840 1080 / 1080 Output Total 2150 / 2150 2125 / 2125 4200 / 4200 1600 / 1600 Balance -1670 / -1670 -1015 / -1015 -3360 / -3360 -520 / -520 Weight 200 lb 9 oz 198 lb 8 oz 198 lb 7.997 oz - Constitutional no acute distress Comments: Sitting on bedside and appears comfortable. - *Routine Respiratory Exam Comments: Few scattered bilateral rhonchi - *Routine Cardiovascular Exam Present: RRR Comments: Monitor showing regular rate and rhythm 100-120 - *Routine Abdominal Exam Present: soft, normoactive bowel sounds. Absent: tenderness Comments: Aguilera catheter in place - *Routine Extremities Exam Absent: edema, calf tenderness - *Routine Neurological Exam Present: alert, oriented X3 Answers are slow. Flat affect. Assessment and Plan (1) Bilateral pleural effusion Current visit: Yes Status: Acute Category: Medical Code(s): J90 - Pleural effusion, not elsewhere classified (2) Chronic atrial fibrillation Current visit: Yes Status: Acute Category: Medical Code(s): I48.20 - Chronic atrial fibrillation, unspecified (3) Elevated brain natriuretic peptide (BNP) level Current visit: Yes Status: Acute Category: Medical Code(s): R79.89 - Other specified abnormal findings of blood chemistry (4) Generalized weakness Current visit: Yes Status: Acute Category: Medical Code(s): R53.1 - Weakness (5) Debility Current visit: Yes Status: Chronic Category: Medical Code(s): R53.81 - Other malaise (6) Morbid obesity Current visit: Yes Status: Chronic Category: Medical Code(s): E66.01 - Morbid (severe) obesity due to excess calories (7) CKD (chronic kidney disease), stage IV Current visit: No Status: Chronic Category: Medical Code(s): N18.4 - Chronic kidney disease, stage 4 (severe) (8) Hyperlipidemia Current visit: No Status: Chronic Category: Medical Code(s): E78.5 - Hyperlipidemia, unspecified (9) Hypertension Current visit: No Status: Chronic Category: Medical Code(s): I10 - Essential (primary) hypertension (10) Change in mental status Current visit: Yes Status: Acute Category: Medical Code(s): R41.82 - Altered mental status, unspecified - Assessment and plan all Dx Assessment and Plan for all problems:: Patient did not receive p.m. doses of beta-tera and Cardizem. We will see how she responds to her a.m. medicines. Cardiology consult to revisit possible ablation and pacemaker with both patient and . Patient is more open to discussing this at present. We will remove Aguilera catheter.
--- NOTE | 2019-07-21 09:46 | Consult Report ---
History of Present Illness Consult date: 07/21/19 Requesting physician: Carolyn Michel Consult reason: atrial fibrillation Chief complaint: cough, weakness Additional Medical History:: 1. Hypertension A. Echo, 06/2019, 1. Biatrial enlargement, normal left ventricular size, mild concentric left ventricular hypertrophy, visually estimated ejection fraction 55% with no regional wall motion abnormality, diastolic parameters are inconclusive. 2. Mildly enlarged right ventricle with normal contractility. 3. Thickened and calcified aortic valve without aortic stenosis, there is mild aortic insufficiency. 4. Moderate mitral and tricuspid regurgitation, calculated right ventricular systolic pressure is 60 mmHg. 5. No significant pericardial effusion noted 2. Hyperlipidemia 3. Diabetes mellitus 4. Atrial fibrillation/flutter dating back to at least 2013 A. Rate in the 90-110 bpm range on digoxin, bisoprolol and diltiazem B. CHADS-VASC score of at least 6 (9.8% per year of CVA), 06/2019 5. History of Lexiscan Myoview 2013 with no ischemia and normal ejection fraction 6. Hx of carotid artery disease A. S/P right CEA 2003 at [facility] B. Carotid doppler 05/14/14: 50-69% LICA stenosis, no stenosis in the CASA 7. CHRISTOPHER, severe by sleep study in 2005, not on CPAP (reported intolerance) 8. CKD, stage 4 with Cr 2.3 and GFR 06/2019 A. Proteinuria History of present illness: Ms. Dixon is a 79-year-old female who was recently admitted to [facility] for pneumonia a few weeks ago. She went home and was doing well until the past few days when she became very weak. She states her legs would just give out and she was unable to transfer herself from her bed to her Hoveround chair. She had some shortness of breath as well but no cough. She was eating well at home. She was seen in the office of [facility] on Sunday and had a chest x-ray and was started on Lasix and Zithromax. She did develop a red rash after starting the Zithromax and had an increase in her bilateral lower leg and ankle edema. She states the swelling is better today. She was brought to the emergency room for evaluation and was admitted. The above per Jeny Rasmussen PA-C Cardiology consulted for A. fib/A. flutter and discussion of referral for AV node ablation with pacer insertion. [facility] History Medical History: Reports:: Atrial Fibrillation (flutter), Congestive Heart Failure, Diabetes Mellitus Type 2, Hyperlipidemia, Hypertension, Renal Insufficiency *Have you ever received a pneumonia vaccine?: No *Have you received a flu vaccine this season?: No Other Medical History: Reports: Arthritis, Cataracts Laterality Cases: Left: Total Knee Replacement, Right: Carotid Endarterectomy Other Surgeries: Yes: - *Social History Educational Level: Completed High School Smoking Status: Former smoker Tobacco Type: cigarettes # Packs/Day (cigarettes): 3 #Yrs smoked (if former smoker): 23 Alcohol Intake: never *Occupational Status:: retired Housing: house Household Members: spouse *Travel in the last 8 weeks: None Family Hx:: Other (CHF, Renal Failure) Meds Home Medications Medication Instructions Recorded Confirmed Type allopurinol 100 mg tablet 100 mg PO DAILY 06/16/19 07/17/19 History aspirin 81 mg tablet,delayed 81 mg PO DAILY 06/16/19 07/17/19 History release digoxin 125 mcg (0.125 mg) tablet 125 mcg PO DAILY 06/16/19 07/17/19 History fenofibrate nanocrystallized 145 145 mg PO DAILY 06/16/19 07/17/19 History mg tablet losartan 50 mg tablet 50 mg PO DAILY 06/16/19 07/17/19 History sertraline 25 mg tablet 25 mg PO DAILY 06/16/19 07/17/19 History Carbidopa/Levodopa 1 each PO BID 07/17/19 07/17/19 History [Carbidopa/Levodopa 25/100mg Tablet] Furosemide [Furosemide 40MG tAB] 40 mg PO DAILY 07/17/19 07/17/19 History Sitagliptin Phosphate [Januvia 50 mg PO DAILY 07/17/19 07/17/19 History 100mg tablet] bisoproloL fumarate [Zebeta 5mg 10 mg PO BID 07/17/19 07/17/19 History tablet] dilTIAZem HCL [Cardizem 180mg ER 180 mg PO BID 07/17/19 07/17/19 History capsule] Ascorbic Acid [Vitamin C] 1,000 mg PO DAILY 07/18/19 07/18/19 History Azithromycin 500 mg PO DIRECTED 07/18/19 07/18/19 History Cholecalciferol (Vitamin D3) 1 cap PO DAILY 07/18/19 07/18/19 History [Vitamin D3] Ferrous Sulfate [Iron] 1 tab PO BID 07/18/19 07/18/19 History Allergies Allergy/AdvReac Type Severity Reaction Status Date / Time No Known Allergies Allergy Verified 07/17/19 16:47 Review of Systems - Review of Systems Review of systems:: pertinent systems reviewed and negative unless documented below - *Cardiovascular Reports shortness of breath, Denies chest pain - *Respiratory Reports shortness of breath - *Gastrointestinal Denies abdominal pain, Denies nausea, Denies vomiting - *Genitourinary Denies blood in urine - *Musculoskeletal Denies joint pain, Denies back pain - *Neurologic Reports weakness (Generalized), Denies abnormal speech, Denies dizziness, Denies localized weakness, Denies frequent falls, Denies headache(s), Denies dizziness Exam Vital signs and Labs for Last 24 Hours: Temp Pulse Resp BP Pulse Ox 97.6 F 96 H 20 192/106 H 92 L 07/21/19 08:00 07/21/19 08:57 07/21/19 08:00 07/21/19 08:00 07/21/19 08:00 Laboratory Results - last 24 hr 07/21/19 05:40: Sodium 142, Potassium 3.5, Chloride 102, Carbon Dioxide 33 H, Anion Gap 10.5, BUN 44 H, Creatinine 2.32 H, Estimated Creat Clear 28, Estimated GFR 20 L, Est GFR ( Amer) 25 L, Glucose 92, Calcium 8.6 07/21/19 05:57: POC Glucose 91 I & O for Last 24 hours: Intake & Output 07/18/19 07/19/19 07/20/19 07/21/19 11:59 11:59 11:59 11:59 Intake Total 480 / 480 1110 / 1110 840 / 840 1080 / 1080 Output Total 2150 / 2150 2125 / 2125 4200 / 4200 1600 / 1600 Balance -1670 / -1670 -1015 / -1015 -3360 / -3360 -520 / -520 Weight 200 lb 9 oz 198 lb 8 oz 198 lb 7.997 oz - *Routine HEENT Exam Head: Present: normocephalic Eye: Present: EOMI, PERRL ENT: Present: mucous membranes moist - *Routine Neck Exam Present: supple. Absent: JVD, carotid bruit - *Routine Respiratory Exam Present: decreased breath sounds, CTA bilaterally. Absent: accessory muscle use, rales, rhonchi, wheezes - *Routine Cardiovascular Exam Present: tachycardia, irregular rhythm. Absent: murmur, gallop, rubs - *Routine Abdominal Exam Present: soft. Absent: tenderness, distended, guarding - *Routine Extremities Exam Present: edema. Absent: calf tenderness - *Routine Neurological Exam Present: alert, oriented X3, moving all extremities Assessment and Plan (1) Bilateral pleural effusion Current visit: Yes Status: Acute Category: Medical Code(s): J90 - Pleural effusion, not elsewhere classified (2) Chronic atrial fibrillation Current visit: Yes Status: Acute Category: Medical Code(s): I48.20 - Chronic atrial fibrillation, unspecified (3) Elevated brain natriuretic peptide (BNP) level Current visit: Yes Status: Acute Category: Medical Code(s): R79.89 - Other specified abnormal findings of blood chemistry (4) Generalized weakness Current visit: Yes Status: Acute Category: Medical Code(s): R53.1 - Weakness (5) Debility Current visit: Yes Status: Chronic Category: Medical Code(s): R53.81 - Other malaise (6) Morbid obesity Current visit: Yes Status: Chronic Category: Medical Code(s): E66.01 - Morbid (severe) obesity due to excess calories (7) CKD (chronic kidney disease), stage IV Current visit: No Status: Chronic Category: Medical Code(s): N18.4 - Optometric Aide izabel kidney disease, stage 4 (severe) (8) Hyperlipidemia Current visit: No Status: Chronic Category: Medical Code(s): E78.5 - Hyperlipidemia, unspecified (9) Hypertension Current visit: No Status: Chronic Category: Medical Code(s): I10 - Essential (primary) hypertension (10) Change in mental status Current visit: Yes Status: Acute Category: Medical Code(s): R41.82 - Altered mental status, unspecified - Assessment and plan all Dx Assessment and Plan for all problems:: 1. A. flutter with variable rate on digoxin, bisoprolol and diltiazem. Consulted to discuss AV node ablation and pacemaker insertion. At this time pt has rates down to 60 bpm documented on vitals flow sheet. was under the impression that if patient had AV node ablation, she could get off some of her medication and potentially have improvement in her edema. She will need meds for BP regardless. Dr. Ruiz discussed switching from diltiazem to verapamil and stopping digoxin to see if heart rate could be controlled on one less medication. He would like her to be monitored for 48 hrs after the change today before considering pacemaker insertion. Ideally, the pacemaker would be placed and allowed to heal for 6 wks prior to AV node ablation (if needed) to ensure the pacer leads are secured in the heart (due to pacer dependence once AV node ablation has been performed). Consider anticoagulation for elevated CHADS-VASC score prior to discharge. 2. Mental status changes with no acute process on CT of head. 3. Generalized weakness and limited mobility 4. Elevated BNP without CHF on CXR. Pleural effusions noted. 5. Obesity 6. DM, per PCP 7. HTN, not to goal 8. CKD, stage 4
[2019-07-22 08:14] LABS: Basophils # 0.1 K/mm3 (0-0.2); Basophils % 1.3 % (0.1-2.0); Eosinophils # 0.3 K/mm3 (0.0-0.4); Eosinophils % 5.3 % (0.1-12.0); Hematocrit 36.1 % (37.0-47.0); Hemoglobin 10.9 g/dL (12.2-16.2); Lymphocytes # 1.2 K/mm3 (0.7-4.5); Lymphocytes % 23.6 % (10-50); Mean Corpuscular HGB Conc 30.2 g/dL (31.8-35.4); Mean Corpuscular Volume 95.6 fl (81-99); Mean Platelet Volume 8.4 fl (7.4-10.4); Monocytes # 0.3 K/mm3 (0.1-1.0); Monocytes % 5.3 % (1.7-9.3); Neutrophils # 3.4 K/mm3 (1.8-7.8); Neutrophils % 64.5 % (37.0-80.0); Platelet Count 415 K/mm3 (142-424); Red Blood Count 3.77 M/mm3 (4.20-5.40); White Blood Count 5.2 K/mm3 (4.8-10.8)
--- NOTE | 2019-07-22 08:15 | Progress Note ---
Subjective Date: 07/22/19 Time: 08:12 Principal diagnosis: A. flutter Interval history: 79 yo WF in bedside chair eating breakfast in NAD. Seems more alert today. Denies any chest pain. concerned about sequence of events if both AV node ablation and pacer needed. Telemetry today shows A. flutter with rate in the 50-60's. BP still elevated. Exam Vital signs and Labs for Last 24 Hours: Temp Pulse Resp BP Pulse Ox 98.5 F 54 L 18 181/77 H 96 07/22/19 08:00 07/22/19 08:00 07/22/19 08:00 07/22/19 08:00 07/22/19 08:00 I & O for Last 24 hours: Intake & Output 07/19/19 07/20/19 07/21/19 07/22/19 11:59 11:59 11:59 11:59 Intake Total 1110 / 1110 840 / 840 1080 / 1080 480 / 480 Output Total 2125 / 2125 4200 / 4200 2200 / 2200 3025 / 3025 Balance -1015 / -1015 -3360 / -3360 -1120 / -1120 -2545 / -2545 Weight 198 lb 8 oz 198 lb 7.997 oz 198 lb 6.656 oz - *Routine Respiratory Exam Present: CTA bilaterally. Absent: accessory muscle use, rales, rhonchi, wheezes - *Routine Cardiovascular Exam Present: RRR. Absent: murmur, gallop, rubs - *Routine Extremities Exam Absent: edema, calf tenderness Progress Note: A&P (1) Bilateral pleural effusion Status: Acute Current Visit: Yes (2) Chronic atrial fibrillation Status: Acute Current Visit: Yes (3) Elevated brain natriuretic peptide (BNP) level Status: Acute Current Visit: Yes (4) Generalized weakness Status: Acute Current Visit: Yes (5) Debility Status: Chronic Current Visit: Yes (6) Morbid obesity Status: Chronic Current Visit: Yes (7) CKD (chronic kidney disease), stage IV Status: Chronic Current Visit: No (8) Hyperlipidemia Status: Chronic Current Visit: No (9) Hypertension Status: Chronic Current Visit: No (10) Change in mental status Status: Acute Current Visit: Yes Assessment and Plan for All Diagnoses:: 1. Continue Verapamil and bisoprolol. Monitor heart rate on telemetry for another 24 hrs before considering pacemaker if needed. 2. Pleural effusions, improving on CXR 3. HTN, increase losartan to 50 mg BID 4. General debility
[2019-07-22 08:20] LABS: Anion Gap 10.5 mEq/L (5-15); Calcium 8.9 mg/dL (8.5-10.1)
--- NOTE | 2019-07-22 09:07 | Progress Note ---
Internal Medicine - PN: Subj *Date: 07/22/19 *Time: 09:04 Interval history: Patient states she feels " fine". She denies chest pain and shortness of breath. She would just like to finish her breakfast this morning. She has been sitting up in a chair. She states she did not sleep well last night. She has been seen by cardiology this morning. She was started on verapamil yesterday. See cardiology note. Blood pressure is elevated today. Blood pressure is 181/77. Repeat lab work this morning shows a white blood cell count of 5200 with a hemoglobin of 10.9 hematocrit of 36.1. Blood chemistry shows improving renal function with a BUN of 44 and creatinine of 2.2. Exam Vital signs and Labs for Last 24 Hours: Temp Pulse Resp BP Pulse Ox 98.5 F 54 L 18 181/77 H 96 07/22/19 08:00 07/22/19 08:00 07/22/19 08:00 07/22/19 08:00 07/22/19 08:00 Laboratory Results - last 24 hr 07/22/19 08:05: WBC 5.2, RBC 3.77 L, Hgb 10.9 L, Hct 36.1 L, MCV 95.6, MCH 28.9, MCHC 30.2 L, RDW 17.0, Plt Count 415, MPV 8.4, Neut % (Auto) 64.5, Lymph % (Auto) 23.6, [place] % (Auto) 5.3, Eos % (Auto) 5.3, Baso % (Auto) 1.3, Neut # (Auto) 3.4, Lymph # (Auto) 1.2, [place] # (Auto) 0.3, Eos # (Auto) 0.3, Baso # (Auto) 0.1 07/22/19 08:05: Sodium 142, Potassium 3.5, Chloride 101, Carbon Dioxide 34 H, Anion Gap 10.5, BUN 44 H, Creatinine 2.29 H, Estimated Creat Clear 29, Estimated GFR 21 L, Est GFR ( Amer) 25 L, Glucose 121 H, Calcium 8.9 I & O for Last 24 hours: Intake & Output 07/19/19 07/20/19 07/21/19 07/22/19 11:59 11:59 11:59 11:59 Intake Total 1110 / 1110 840 / 840 1080 / 1080 840 / 840 Output Total 2125 / 2125 4200 / 4200 2200 / 2200 3325 / 3325 Balance -1015 / -1015 -3360 / -3360 -1120 / -1120 -2485 / -2485 Weight 198 lb 8 oz 198 lb 7.997 oz 198 lb 6.656 oz - Constitutional no acute distress Comments: Patient is sitting up in a chair at bedside eating her breakfast. - *Routine Respiratory Exam Comments: Few bibasilar crackles - *Routine Cardiovascular Exam Comments: Monitor shows atrial fibrillation with a controlled ventricular response in the 50s and 60s. - *Routine Abdominal Exam Present: soft, normoactive bowel sounds - *Routine Extremities Exam Absent: edema, calf tenderness - *Routine Neurological Exam Present: alert, oriented X3 Responses are quicker today. Assessment and Plan (1) Bilateral pleural effusion Current visit: Yes Status: Acute Category: Medical Code(s): J90 - Pleural effusion, not elsewhere classified (2) Chronic atrial fibrillation Current visit: Yes Status: Acute Category: Medical Code(s): I48.20 - Chronic atrial fibrillation, unspecified (3) Elevated brain natriuretic peptide (BNP) level Current visit: Yes Status: Acute Category: Medical Code(s): R79.89 - Other specified abnormal findings of blood chemistry (4) Generalized weakness Current visit: Yes Status: Acute Category: Medical Code(s): R53.1 - Weakness (5) Debility Current visit: Yes Status: Chronic Category: Medical Code(s): R53.81 - Other malaise (6) Morbid obesity Current visit: Yes Status: Chronic Category: Medical Code(s): E66.01 - Morbid (severe) obesity due to excess calories (7) CKD (chronic kidney disease), stage IV Current visit: No Status: Chronic Category: Medical Code(s): N18.4 - Chronic kidney disease, stage 4 (severe) (8) Hyperlipidemia Current visit: No Status: Chronic Category: Medical Code(s): E78.5 - Hyperlipidemia, unspecified (9) Hypertension Current visit: No Status: Chronic Category: Medical Code(s): I10 - Essential (primary) hypertension (10) Change in mental status Current visit: Yes Status: Acute Category: Medical Code(s): R41.82 - Altered mental status, unspecified - Assessment and plan all Dx Assessment and Plan for all problems:: We will obtain a stat EKG and chest x-ray. We will continue as per cardiology recommendations. Plan 24 more hours of cardiac monitoring.
--- NOTE | 2019-07-22 15:32 | Electrocardiograph Report ---
APPROVED REPORT Exam: Resting ECG HR:59 bpm ECG Measurements Heart Rate 59 AXES MS P 102 QRSd 86 QRS 119 QT 418 T219 QTc 413 <Conclusion> Suspect arm lead reversal, interpretation assumes no reversal Atrial flutter with variable AV block Right axis deviation Nonspecific ST abnormality Abnormal QRS-T angle, consider primary T wave abnormality Abnormal ECG Electronically signed by : Oj Mccarthy, 07/22/2019 15:32:28
--- NOTE | 2019-07-23 08:24 | Progress Note ---
Internal Medicine - PN: Subj *Date: 07/23/19 *Time: 08:21 Interval history: Patient states she feels about the same today. She denies any pain. She states she is still very weak. According to nursing staff, she is still maximum 2 person assist even to get to the bedside commode. She did not rest well last night. She did eat all of her breakfast this morning. Exam Vital signs and Labs for Last 24 Hours: Temp Pulse Resp BP Pulse Ox 98.3 F 71 18 143/67 H 96 07/23/19 08:00 07/23/19 08:00 07/23/19 08:00 07/23/19 08:00 07/23/19 08:00 Laboratory Results - last 24 hr 07/22/19 08:05: Sodium 142, Potassium 3.5, Chloride 101, Carbon Dioxide 34 H, Anion Gap 10.5, BUN 44 H, Creatinine 2.29 H, Estimated Creat Clear 29, Estimated GFR 21 L, Est GFR ( Amer) 25 L, Glucose 121 H, Calcium 8.9 07/22/19 21:13: POC Glucose 135 H I & O for Last 24 hours: Intake & Output 07/20/19 07/21/19 07/22/19 07/23/19 11:59 11:59 11:59 11:59 Intake Total 840 / 840 1080 / 1080 840 / 840 520 / 520 Output Total 4200 / 4200 2200 / 2200 3325 / 3325 725 / 725 Balance -3360 / -3360 -1120 / -1120 -2485 / -2485 -205 / -205 Weight 198 lb 8 oz 198 lb 7.997 oz 198 lb 6.656 oz 194 lb 4 oz Microbiology Reports for the Last 24 Hours: Microbiology 07/17/19 17:03 Blood Blood Culture - Final NO GROWTH AFTER 5 DAYS 07/17/19 17:03 Blood Blood Culture - Final NO GROWTH AFTER 5 DAYS Radiology Reports for the Last 24 Hours: CXR - Cardiomegaly with trace left effusion with minimal atelectasis or infiltrate in the left CP angle - Constitutional no acute distress - *Routine Respiratory Exam Present: CTA bilaterally - *Routine Cardiovascular Exam Present: irregularly irregular - *Routine Abdominal Exam Present: soft, normoactive bowel sounds. Absent: tenderness - *Routine Extremities Exam Absent: cyanosis, clubbing, edema - *Routine Skin Exam Present: warm. Absent: rash - *Routine Neurological Exam Present: alert, oriented X3 Assessment and Plan (1) Bilateral pleural effusion Current visit: Yes Status: Acute Category: Medical Code(s): J90 - Pleural effusion, not elsewhere classified (2) Chronic atrial fibrillation Current visit: Yes Status: Acute Category: Medical Code(s): I48.20 - Chronic atrial fibrillation, unspecified (3) Elevated brain natriuretic peptide (BNP) level Current visit: Yes Status: Acute Category: Medical Code(s): R79.89 - Other specified abnormal findings of blood chemistry (4) Generalized weakness Current visit: Yes Status: Acute Category: Medical Code(s): R53.1 - Weakness (5) Debility Current visit: Yes Status: Chronic Category: Medical Code(s): R53.81 - Other malaise (6) Morbid obesity Current visit: Yes Status: Chronic Category: Medical Code(s): E66.01 - Morbid (severe) obesity due to excess calories (7) CKD (chronic kidney disease), stage IV Current visit: No Status: Chronic Category: Medical Code(s): N18.4 - Chronic kidney disease, stage 4 (severe) (8) Hyperlipidemia Current visit: No Status: Chronic Category: Medical Code(s): E78.5 - Hyperlipidemia, unspecified (9) Hypertension Current visit: No Status: Chronic Category: Medical Code(s): I10 - Essential (primary) hypertension (10) Change in mental status Current visit: Yes Status: Acute Category: Medical Code(s): R41.82 - Altered mental status, unspecified - Assessment and plan all Dx Assessment and Plan for all problems:: Cardiology did state this morning that patient does not need a pacemaker or an ablation. They feel she is stable for rehab. Patient has a bed at [facility]. Will discuss further care with Dr. Michel.
--- NOTE | 2019-07-23 09:25 | Progress Note ---
Subjective Date: 07/23/19 Time: 09:25 Principal diagnosis: A. flutter Interval history: This is a 79-year-old white female who was admitted with atrial flutter. She remains in atrial fibrillation today with rate control. She denies any chest pain or pressure. She denies any shortness of breath or edema. She denies any fever, chills, nausea, vomiting, diarrhea, PND or orthopnea. She is still having some weakness and requiring assistance with getting up out of bed. The patient's heart rate has remained in the 50s and 60s overnight. This morning her heart rate is in the 60s and 70s. No need for permanent pacemaker placement at this time or AV node ablation. Ultimately she will likely end up with a AV node ablation and pacemaker but her would prefer this happen at the same time which will most likely have to be with an clubhouse attendant on an o utpatient basis. Her blood pressure is under better control today. She appears to be in no distress. Exam Vital signs and Labs for Last 24 Hours: Temp Pulse Resp BP Pulse Ox 98.3 F 71 18 143/67 H 96 07/23/19 08:00 07/23/19 08:00 07/23/19 08:00 07/23/19 08:00 07/23/19 08:00 Laboratory Results - last 24 hr 07/22/19 21:13: POC Glucose 135 H I & O for Last 24 hours: Intake & Output 07/20/19 07/21/19 07/22/19 07/23/19 23:59 23:59 23:59 23:59 Intake Total 1080 / 1080 840 / 840 870 / 880 Output Total 2275 / 2275 4025 / 4875 1775 / 1775 250 / 250 Balance -1195 / -1195 -3185 / -4035 -905 / -895 -240 / -240 Weight 198 lb 8 oz 198 lb 6.656 oz 198 lb 6.656 oz 194 lb 4 oz Microbiology Reports for the Last 24 Hours: Microbiology 07/17/19 17:03 Blood Blood Culture - Final NO GROWTH AFTER 5 DAYS 07/17/19 17:03 Blood Blood Culture - Final NO GROWTH AFTER 5 DAYS Narrative: Telemetry strip shows atrial fibrillation with a rate of 68. - Constitutional no acute distress, obese - *Routine HEENT Exam Head: Present: normocephalic, atraumatic Eye: Present: EOMI, PERRL ENT: Present: mucous membranes moist - *Routine Neck Exam Present: supple, full ROM, normal carotid upstroke. Absent: JVD, carotid bruit, lymphadenopathy - *Routine Respiratory Exam Present: CTA bilaterally - *Routine Cardiovascular Exam Present: Normal S1, Normal S2, irregularly irregular. Absent: murmur - *Routine Abdominal Exam Present: soft, normoactive bowel sounds. Absent: tenderness, distended - *Routine Extremities Exam Present: full ROM, pulses intact, normal capillary refill. Absent: cyanosis, clubbing, edema - *Routine Skin Exam Present: intact, warm. Absent: erythema, rash - *Routine Neurological Exam Present: alert, oriented X3 - Detailed Eye Exam Eyelids: Left normal inspection Progress Note: A&P (1) Chronic atrial fibrillation Status: Chronic Current Visit: Yes (2) Bilateral pleural effusion Status: Acute Current Visit: Yes (3) Elevated brain natriuretic peptide (BNP) level Status: Acute Current Visit: Yes (4) Generalized weakness Status: Acute Current Visit: Yes (5) Debility Status: Chronic Current Visit: Yes (6) CKD (chronic kidney disease), stage IV Status: Chronic Current Visit: No (7) Hyperlipidemia Status: Chronic Current Visit: No (8) Hypertension Status: Chronic Current Visit: No (9) Change in mental status Status: Acute Current Visit: Yes Assessment and Plan for All Diagnoses:: Plan: 1. The patient was admitted to the hospital with atrial flutter. She is in atrial fibrillation today with rate control. Her heart rate is in the 60s and 70 this this morning on a beta-tera and calcium channel tera. We will continue these medications. 2. No permanent pacemaker is indicated at this time as her heart rate has luana ined stable. She also does not require an AV node ablation at this time due to her stable heart rate. We do recommend close monitoring of her heart rate as she may ultimately end up needing the AV node ablation and permanent pacemaker placement in the future. 3. She denies any chest pain or pressure. No plans for invasive cardiac testing at this time. 4. Her blood pressure has improved and is stable. 5. Her LDL goal is less than 100. 6. The patient is on Xarelto for long-term anticoagulation secondary to her atrial fibrillation. 7. The patient does have debility and mental status changes. She is [facility]. We do recommend close monitoring of her heart rate while she is in the rehab facility. 8. No further recommendations at this time from a cardiac standpoint. The patient is stable for discharge home today from a cardiac standpoint. She will need to follow-up in 1 to 2 weeks on an outpatient basis. Thank you for the opportunity to help participate in the care of this patient.
--- NOTE | 2019-07-23 12:45 | Discharge Summary ---
General - General Admission date:: 07/17/19 Discharge date: 07/23/19 HPI HPI: Ms. Dixon is a 79-year-old female who was recently admitted to [facility] for pneumonia a few weeks ago. She went home and was doing well until the past few days when she became very weak. She stated her legs would just give out and she was unable to transfer herself from her bed to her Hoveround chair. She had some shortness of breath as well but no cough. She was eating well at home. She was seen in the office of [facility] on Sunday and had a chest x-ray and was started on Lasix and Zithromax. She did develop a red rash after starting the Zithromax and had an increase in her bilateral lower leg and ankle edema. She stated the swelling was better. She was brought to the emergency room for evaluation and was admitted. Hospital Course Hospital Course: On admission patient's main concern was her leg weakness. Physical therapy was consulted. She did have some change in her mentation and a CT scan of the head was performed. This was negative. Dr. Michel noted a decline in her renal function. He also noted change in the medications with the discontinuation of Simemet and allopurinol. Disposition was discussed with both and daughter. She denied chest pain and shortness of breath and stated that everything was fine. She was eating well without problems. Bowels were moving. Physical therapy evaluated her and felt she would need rehab. Patient remained in atrial fib and flutter. Cardiology did see the patient and switched her to verapamil with discontinuation of the Cardizem and DIGOXIN. Ablation and possible pacemaker were discussed with patient and . Aguilera catheter was removed.Cardiology did recommend that she be monitored for 2 additional days w ith a change in her medication. And at that time revisit possible pacer and ablation. Patient continued to feel very weak. She was noted to be maximum 2 person assist even to get up to the bedside commode. Creatinine improved to 2.29. Blood cultures were negative after 5 days. Repeat chest x-ray showed cardiomegaly with trace of left effusion and minimal atelectasis in the CP angle. On 07/23/2019 cardiology stated that patient did not need a pacer or ablation. She remained in At fib/flutter with a more controlled V rate from 50's to 70's with the med change. She will need VS checked bid for the next 2 weeks and daily before verapmil . She will be followed by by Dr. Michel in the facility. Medications as per list. Objective Vital signs: Temp Pulse Resp BP Pulse Ox 98.3 F 71 18 143/67 H 96 07/23/19 08:00 07/23/19 08:00 07/23/19 08:00 07/23/19 08:00 07/23/19 08:00 Narrative: Exam Vital signs and Labs for Last 24 Hours: Temp Pulse Resp BP Pulse Ox 98.3 F 71 18 143/67 H 96 07/23/19 08:00 07/23/19 08:00 07/23/19 08:00 07/23/19 08:00 07/23/19 08:00 Laboratory Results - last 24 hr 07/22/19 21:13: POC Glucose 135 H I & O for Last 24 hours: Intake & Output 07/20/19 07/21/19 07/22/19 07/23/19 23:59 23:59 23:59 23:59 Intake Total 1080 / 1080 840 / 840 870 / 880 10 / 10 Output Total 2275 / 2275 4025 / 4875 1775 / 1775 250 / 250 Balance -1195 / -1195 -3185 / -4035 -905 / -895 -240 / -240 Weight 198 lb 8 oz 198 lb 6.656 oz 198 lb 6.656 oz 194 lb 4 oz Microbiology Reports for the Last 24 Hours: Microbiology 07/17/19 17:03 Blood Blood Culture - Final NO GROWTH AFTER 5 DAYS 07/17/19 17:03 Blood Blood Culture - Final NO GROWTH AFTER 5 DAYS Narrative: Telemetry strip shows atrial fibrillation with a rate of 68. - Constitutional no acute distress, obese - *Routine HEENT Exam Head: Present: normocephalic, atraumatic Eye: Present: EOMI, PERRL ENT: Present: mucous membranes moist - *Routine Neck Exam Present: supple, full ROM, normal carotid upstroke. Absent: JVD, carotid bruit, lymphadenopathy - *Routine Respiratory Exam Present: CTA bilaterally - *Routine Cardiovascular Exam Present: Normal S1, Normal S2, irregularly irregular. Absent: murmur - *Routine Abdominal Exam Present: soft, normoactive bowel sounds. Absent: tenderness, distended - *Routine Extremities Exam Present: full ROM, pulses intact, normal capillary refill. Absent: cyanosis, clubbing, edema - *Routine Skin Exam Present: intact, warm. Absent: erythema, rash - *Routine Neurological Exam Present: alert, oriented X3 - Detailed Eye Exam Eyelids: Left normal inspection Results Completed studies during hospitalization [Text1]: Laboratory Tests 07/17/19 07/22/19 07/22/19 17:03 08:05 08:05 WBC 5.2 RBC 3.77 L Hgb 10.9 L Hct 36.1 L MCV 95.6 MCH 28.9 MCHC 30.2 L Plt Count 415 Sodium 142 Potassium 3.5 Chloride 101 Carbon Dioxide 34 H Anion Gap 10.5 BUN 44 H Creatinine 2.29 H Estimated GFR 21 L Calcium 8.9 Digoxin 1.51 Chest x-ray 07/17/2019 IMPRESSION: Slight interval improvement with decrease in left pleural effusion. No change in right pleural effusion CT of the head 07/19/2019 IMPRESSION: No acute intracranial finding Repeat chest x-ray 07/21/2019 IMPRESSION: 1. Cardiomegaly with trace left effusion with minimal atelectasis or infiltrate in the left CP angle Labs on day of discharge: Labs from last 24 hours 07/23/19 07/22/19 12:12 21:13 POC Glucose 159 H 135 H DS: Diagnosis - Discharge Diagnosis (1) Chronic atrial fibrillation Status: Chronic (2) Bilateral pleural effusion Status: Acute (3) Elevated brain natriuretic peptide (BNP) level Status: Acute (4) Generalized weakness Status: Acute (5) Debility Status: Chronic (6) CKD (chronic kidney disease), stage IV Status: Chronic (7) Hyperlipidemia Status: Chronic (8) Hypertension Status: Chronic (9) Change in mental status Status: Acute Discharge Plan - Patient Discharge Instructions ACTIVITY: Continue current activity DIET: advance to your usual diet Patient Instructions: Atrial Fibrillation, DI for Atrial Fibrillation, DI for Peripheral Edema -- Bilateral, DI for Pleural Effusion - Follow up Plan Follow up with: Carolyn Michel MD [Staff Physician] - 08/06/19 Disposition: [facility] Home Medications: Home Medications Medication Instructions Recorded Confirmed Type allopurinol 100 mg tablet 100 mg PO DAILY 06/16/19 07/17/19 History aspirin 81 mg tablet,delayed 81 mg PO DAILY 06/16/19 07/17/19 History release fenofibrate nanocrystallized 145 145 mg PO DAILY 06/16/19 07/17/19 History mg tablet sertraline 25 mg tablet 25 mg PO DAILY 06/16/19 07/17/19 History Carbidopa/Levodopa 1 each PO BID 07/17/19 07/17/19 History [Carbidopa/Levodopa 25/100mg Tablet] Furosemide [Furosemide 40MG tAB] 40 mg PO DAILY 07/17/19 07/17/19 History Sitagliptin Phosphate [Januvia 50 mg PO DAILY 07/17/19 07/17/19 History 100mg tablet] bisoproloL fumarate [Zebeta 5mg 10 mg PO BID 07/17/19 07/17/19 History tablet] Ascorbic Acid [Vitamin C] 1,000 mg PO DAILY 07/18/19 07/18/19 History Cholecalciferol (Vitamin D3) 1 cap PO DAILY 07/18/19 07/18/19 History [Vitamin D3] Ferrous Sulfate [Iron] 1 tab PO BID 07/18/19 07/18/19 History Cholecalciferol (Vitamin D3) 1 unit PO DAILY #30 07/23/19 Rx [Replesta] Losartan Potassium [Cozaar 50mg 50 mg PO DAILY #60 tab 07/23/19 Rx Tablets] Rivaroxaban [Xarelto 15mg tablet] 15 mg PO QPMWM #30 tab 07/23/19 Rx Verapamil HCl [Calan SR 120mg 240 mg PO BID #60 tablet.er 07/23/19 Rx tablet] Prescriptions/Medication Reconciliation: New Verapamil HCl [Calan SR 120mg tablet] 240 mg PO BID #60 tablet.er Cholecalciferol (Vitamin D3) [Replesta] 1 unit PO DAILY #30 Rivaroxaban [Xarelto 15mg tablet] 15 mg PO QPMWM #30 tab Continued aspirin 81 mg tablet,delayed release 81 mg PO DAILY fenofibrate nanocrystallized 145 mg tablet 145 mg PO DAILY allopurinol 100 mg tablet 100 mg PO DAILY sertraline 25 mg tablet 25 mg PO DAILY Sitagliptin Phosphate [Januvia 100mg tablet] 50 mg PO DAILY Ascorbic Acid [Vitamin C] 1,000 mg PO DAILY Furosemide [Furosemide 40MG tAB] 40 mg PO DAILY Carbidopa/Levodopa [Carbidopa/Levodopa 25/100mg Tablet] 1 each PO BID bisoproloL fumarate [Zebeta 5mg tablet] 10 mg PO BID Ferrous Sulfate [Iron] 1 tab PO BID Cholecalciferol (Vitamin D3) [Vitamin D3] 1 cap PO DAILY Losartan Potassium [Cozaar 50mg Tablets] 50 mg PO DAILY #60 tab Discontinued digoxin 125 mcg (0.125 mg) tablet 125 mcg PO DAILY dilTIAZem HCL [Cardizem 180mg ER capsule] 180 mg PO BID Azithromycin 500 mg PO DIRECTED - Problem Reconciliation Problems Reviewed?: Yes
== END 2019-07-23 15:01 ==
LOC: ER 16:43 → 2ND 16:43
PROVIDERS: ADMIT Family Medicine; ATTEND Family Medicine
CPT/HCPCS: 36415; 70450; 71010; 71020; 71045; 71046; 80048; 80053; 80162; 81001; 82962; 83605; 83735; 83880; 84484; 85007; 85025; 87040; 87275; 87276; 93005; 94761; 96374; 96375; 97110; 97163; 97530; 99285; G0378

== ENCOUNTER → 2019-08-02 16:30 | Outpatient (CLI) | payer MEDICARE, OTHER, SELFPAY ==
[2019-08-02 16:43] LABS: Microscopic, Urine URINE MICROSCOPIC (MICROSCOPIC)
[2019-08-02 17:12] LABS: Appearance,Urine CLEAR (Clear); Bilirubin,Urine Negative (Negative); Blood, Urine Negative (Negative); Color,Urine YELLOW (Yellow); Glucose,Urine (UA) Negative (Negative); Ketones,Urine Negative (Negative); Leukocyte Esterase,Urine Negative (Negative); Nitrate,Urine Negative (Negative); Protein,Urine TRACE (Negative); Urobilinogen,Urine 0.2 EU/dl (0.2)
[2019-08-02 17:31] LABS: RBC,Urine Occasional #/hpf (0-3); Squamous Epithelial Cell,Urine Occasional #/hpf (0-5); Transitional Epi Cells,Urine OCC #/lpf (0-3); WBC,Urine Occasional #/hpf (0-3)
== END ==
PROVIDERS: PCP Family Medicine; Visit Provider Family Medicine
DX: N19 Unspecified kidney failure (principal)
CPT/HCPCS: 81001